=== PATIENT | male | born 1940 | race Caucasian/White ===

== ENCOUNTER 2016-10-11 14:37 | Emergency (ER) | payer MEDICARE, OTHER ==
[~2016-10-11] VITALS: Ht 175.3 cm; Wt 80.0 kg
[~2016-10-11 14:37] MED LIST: CIPR500T2 PO; DOXY100T PO; LORT5TAB PO; SULF1TAB47 PO
[2016-10-11 14:48] VITALS: BP 130/72; PULSE 74; RESP 18; TEMP 98.1; O2SAT 97
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
[2016-10-11 15:49] LABS: BASOPHIL % 0.5 % (0.0-2.0); EOSINOPHIL # 0.2 TH/MM3 (0-0.4); HEMATOCRIT 37.3 % (39.0-51.0); HEMO FLAGS DIFF FINAL; LYMPH % 26.7 % (9.0-44.0); LYMPHOCYTE # 2.2 TH/MM3 (1.0-4.8); MEAN CELL VOLUME 96.5 FL (80.0-100.0); MEAN CORPUSCULAR HEMOGLOBIN 32.6 PG (27.0-34.0); MEAN CORPUSCULAR HGB CONC 33.8 % (32.0-36.0); MONO % 9.8 % (0.0-8.0); PLATELET COUNT 278 TH/MM3 (150-450); RED BLOOD COUNT 3.87 MIL/MM3 (4.50-5.90); RED CELL DISTRIBUTION WIDTH 13.3 % (11.6-17.2); WHITE BLOOD COUNT 8.2 TH/MM3 (4.0-11.0)
[2016-10-11] MEDS ORDERED: SERO50TA PO (15:56)
[2016-10-11] MEDS ORDERED: LORA-392 PO (15:56)
[2016-10-11] MEDS ORDERED: SIMV40TA PO (15:56)
[2016-10-11] MEDS ORDERED: HYDR-3516 PO (15:56)
[2016-10-11] MEDS ORDERED: CELE20TA PO (15:56)
[2016-10-11] MEDS ORDERED: ALBU.5I NEB (15:56)
[2016-10-11] MEDS ORDERED: COLA100C3 PO (15:56)
[2016-10-11] MEDS ORDERED: ARIC10TA PO (15:56)
[2016-10-11 16:07] LABS: ALT (GPT) 19 U/L (12-78); ANION GAP 6 MEQ/L (5-15); AST (GOT) 15 U/L (15-37); BICARBONATE 29.6 MEQ/L (21.0-32.0); BLOOD UREA NITROGEN 15 MG/DL (7-18); CHLORIDE 105 MEQ/L (98-107); GLOMERULAR FILTRATION RATE 76 ML/MIN (>89); POTASSIUM 4.1 MEQ/L (3.5-5.1); SODIUM (NA) 141 MEQ/L (136-145)
[2016-10-11 16:17] LABS: ALKALINE PHOSPHATASE 95 U/L (45-117); TOTAL BILIRUBIN ADULT 0.3 MG/DL (0.2-1.0)
[2016-10-11 18:58] VITALS: BP 137/92; PULSE 67; RESP 18; O2SAT 98
[2016-10-11 22:14] VITALS: BP 141/68; PULSE 76; RESP 18; O2SAT 97
[2016-10-12 02:12] VITALS: BP 134/68; PULSE 73; RESP 19; O2SAT 95
[2016-10-12 06:00] VITALS: BP 135/62; PULSE 74; RESP 19; O2SAT 97
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
[2016-10-12 10:34] LABS: BACTERIA, URINE RARE /hpf; BLOOD, URINE SMALL (NEG); COMMENT (UR) CULT NOT INDICATED; CULTURE IF INDICATED CULT NOT INDICATED; GLUCOSE,URINE NEG (NEG); KETONE, URINE NEG (NEG); MUCUS URINE FEW /lpf (OCC); NITRITE,URINE NEG (NEG); PH, URINE 7.5 (5.0-8.5); SQUAMOUS EPITHELIAL CELL URINE <1 /hpf (0-5); URINE COLOR YELLOW (YELLW/STRAW)
[2016-10-12 10:47] LABS: AMPHETAMINE, URINE NEG (NEG); BARBITURATES, URINE NEG (NEG); COCAINE, URINE NEG (NEG)
[2016-10-12 11:00] VITALS: BP 150/76; PULSE 71; RESP 20; TEMP 98.1; O2SAT 99
[2016-10-12] MEDS ORDERED: QUEtiapine FUMARATE 25 MG TAB PO SCH (11:00)
[2016-10-12] MEDS ORDERED: CITALOPRAM HYDROBROMIDE 20 MG TAB PO SCH (11:00)
== END 2016-10-12 13:39 | disposition home or self-care (01) ==
LOC: NEPE 14:37 → NEPJ 10-12 13:39
DX: G30.8 Other Alzheimer's disease (principal)
CPT/HCPCS: 80053; 80307; 81001; 84443; 85025; 99283

== ENCOUNTER 2017-01-05 13:53 | Inpatient (IN) | payer MEDICARE, OTHER ==
[~2017-01-05] VITALS: Ht 175.3 cm; Wt 68.8 kg
[~2017-01-05 13:53] MED LIST changes: +ALBU.5I NEB; +ARIC10TA PO; +CELE20TA PO; -CIPR500T2 PO; +COLA100C3 PO; -DOXY100T PO; +HYDR-3516 PO; +LORA-392 PO; -LORT5TAB PO; +SERO50TA PO; +SIMV40TA PO; -SULF1TAB47 PO
[2017-01-05 13:57] VITALS: BP 141/73; PULSE 76; RESP 16; TEMP 98.2; O2SAT 96
[2017-01-05 14:53] VITALS: BP 149/77; PULSE 69; RESP 18; TEMP 97.9; O2SAT 97
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
[2017-01-05 16:34] LABS: AUTOMATED NEUTROPHIL # 4.6 TH/MM3 (1.8-7.7); BASOPHIL # 0.1 TH/MM3 (0-0.2); BASOPHIL % 0.8 % (0.0-2.0); EOSINOPHIL % 0.6 % (0.0-4.0); HEMATOCRIT 40.2 % (39.0-51.0); HEMO FLAGS DIFF FINAL; LYMPH % 22.5 % (9.0-44.0); LYMPHOCYTE # 1.6 TH/MM3 (1.0-4.8); MEAN CELL VOLUME 97.6 FL (80.0-100.0); MEAN CORPUSCULAR HGB CONC 33.8 % (32.0-36.0); MONO % 10.7 % (0.0-8.0); NEUT % 65.4 % (16.0-70.0); PLATELET COUNT 252 TH/MM3 (150-450); RED BLOOD COUNT 4.11 MIL/MM3 (4.50-5.90); RED CELL DISTRIBUTION WIDTH 14.6 % (11.6-17.2)
[2017-01-05 16:50] LABS: ANION GAP 4 MEQ/L (5-15); BICARBONATE 29.9 MEQ/L (21.0-32.0); BLOOD UREA NITROGEN 18 MG/DL (7-18); CHLORIDE 112 MEQ/L (98-107); GLOMERULAR FILTRATION RATE 76 ML/MIN (>89); SODIUM (NA) 146 MEQ/L (136-145)
[2017-01-05 16:54] LABS: BACTERIA, URINE RARE /hpf; BLOOD, URINE NEG (NEG); COMMENT (UR) CULT NOT INDICATED; CULTURE IF INDICATED CULT NOT INDICATED; GLUCOSE,URINE NEG (NEG); KETONE, URINE NEG (NEG); MUCUS URINE FEW /lpf (OCC); NITRITE,URINE NEG (NEG); PH, URINE 7.5 (5.0-8.5); URINE COLOR YELLOW (YELLW/STRAW)
[2017-01-05 17:09] LABS: ALCOHOL LESS THAN 3 MG/DL (0-5)
[2017-01-05 18:42] VITALS: BP 118/58; PULSE 58; RESP 16; O2SAT 96
[2017-01-05 22:35] VITALS: BP 129/64; PULSE 63; RESP 18
[2017-01-06 06:18] VITALS: BP 132/69; PULSE 69; RESP 16
[2017-01-06] MEDS ORDERED: ALBU.5I NEB (08:16)
[2017-01-06] MEDS ORDERED: NORC5TAB PO (08:58)
[2017-01-06] MEDS ORDERED: CYAN1000P IM (08:58)
[2017-01-06] MEDS ORDERED: CELE20TA PO (08:58)
[2017-01-06] MEDS ORDERED: CYCL5TAB PO (08:58)
[2017-01-06] MEDS ORDERED: ATOR20TA15 PO (08:58)
[2017-01-06] MEDS ORDERED: SERO25TA PO (08:58)
[2017-01-06] MEDS ORDERED: DEPA250T2 PO (08:58)
[2017-01-06] MEDS ORDERED: LORA-392 PO (08:58)
[2017-01-06] MEDS ORDERED: ARIC23TA PO (08:58)
[2017-01-06] MEDS ORDERED: COLA100C PO (08:58)
[2017-01-06] MEDS ORDERED: ERGO1CAP30 PO (08:58)
[2017-01-06 11:29] VITALS: BP 154/70; PULSE 70; RESP 18; O2SAT 97
[2017-01-06] MEDS ORDERED: LORazepam 1 MG TAB PO PRN (12:15)
[2017-01-06] MEDS ORDERED: LORazepam 2 MG/ML VIAL IM PRN ×2 (12:15→14:00)
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
[2017-01-06 12:48] VITALS: BP 154/70; PULSE 70; RESP 18
[2017-01-06] MEDS ORDERED: ALUMINUM/MAGNESIUM/SIMETH 30 ML CUP PO PRN (13:00)
[2017-01-06] MEDS ORDERED: PILL SPLITTER OTHER PRN (13:00)
[2017-01-06] MEDS ORDERED: MAGNESIUM HYDROXIDE SUSP 30 ML CUP PO PRN (13:00)
[2017-01-06] MEDS ORDERED: CYANOCOBALAMIN 1000 MCG/ML VIAL IM SCH (14:00)
[2017-01-06] MEDS ORDERED: LORazepam 0.5 MG TAB PO PRN (14:00)
[2017-01-06 14:55] VITALS: BP 169/79; PULSE 63; RESP 16; TEMP 98; O2SAT 98
[2017-01-06] MEDS: RESP: ALBUTEROL CONC 2.5 MG/0.5 ML NEB NEB SCH ×2 (15:36→19:52)
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
[2017-01-06 17:30] VITALS: BP 170/78; PULSE 65; RESP 18; TEMP 97.8; O2SAT 98
[2017-01-06] MEDS ORDERED: LISINOPRIL 5 MG TAB PO ONE (17:45)
[2017-01-06] MEDS: ATORVASTATIN 20 MG TAB PO SCH (21:00)
[2017-01-06] MEDS ORDERED: DIVALPROEX SODIUM DELAYED RELEASE 250 MG TAB PO SCH (21:00)
[2017-01-06] MEDS ORDERED: QUEtiapine FUMARATE 25 MG TAB PO SCH (21:00)
[2017-01-06] MEDS ORDERED: DONEPEZIL HCL 5 MG TAB PO SCH (21:00)
[2017-01-06] MEDS: QUEtiapine FUMARATE 25 MG TAB PO SCH (21:51)
[2017-01-06] MEDS: PRAVASTATIN SOD 80 MG TAB PO SCH (21:51)
[2017-01-06] MEDS: ACETAMINOPHEN/HYDROcodone 325 MG/5 MG TAB PO PRN (21:52)
[2017-01-06] MEDS: DIVALPROEX SODIUM DELAYED RELEASE 250 MG TAB PO SCH (21:52)
[2017-01-06] MEDS: CYCLOBENZAPRINE HCL 10 MG TAB PO SCH (21:52)
[2017-01-06] MEDS: DONEPEZIL HCL 5 MG TAB PO SCH (21:53)
[2017-01-06] MEDS: traZODone HCL 50 MG TAB PO PRN (23:45)
[2017-01-06] MEDS: ERGOCALCIFEROL (VIT D2) 50,000 UNIT CAP PO SCH (23:46)
[2017-01-07] MEDS: RESP: ALBUTEROL CONC 2.5 MG/0.5 ML NEB NEB SCH ×4 (04:00→20:14)
[2017-01-07 06:00] VITALS: BP 126/61; PULSE 66; RESP 18; TEMP 96.7; O2SAT 93
[2017-01-07] MEDS: DIVALPROEX SODIUM DELAYED RELEASE 250 MG TAB PO SCH ×2 (09:22→21:58)
[2017-01-07] MEDS: QUEtiapine FUMARATE 25 MG TAB PO SCH ×2 (09:22→21:58)
[2017-01-07] MEDS: CYCLOBENZAPRINE HCL 10 MG TAB PO SCH ×2 (09:22→21:58)
[2017-01-07] MEDS: LISINOPRIL 5 MG TAB PO SCH (09:22)
[2017-01-07] MEDS ORDERED: ACETAMINOPHEN 325 MG TAB PO PRN (10:15)
[2017-01-07] MEDS ORDERED: MAGNESIUM HYDROXIDE SUSP 30 ML CUP PO PRN (10:15)
[2017-01-07] MEDS ORDERED: ALUMINUM/MAGNESIUM/SIMETH 30 ML CUP PO PRN (10:15)
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
[2017-01-07 13:11] LABS: AUTOMATED NEUTROPHIL # 5.2 TH/MM3 (1.8-7.7); BASOPHIL # 0.1 TH/MM3 (0-0.2); BASOPHIL % 0.7 % (0.0-2.0); EOSINOPHIL # 0.1 TH/MM3 (0-0.4); EOSINOPHIL % 0.9 % (0.0-4.0); HEMATOCRIT 44.1 % (39.0-51.0); HEMO FLAGS DIFF FINAL; LYMPH % 28.4 % (9.0-44.0); LYMPHOCYTE # 2.4 TH/MM3 (1.0-4.8); MEAN CELL VOLUME 96.7 FL (80.0-100.0); MEAN CORPUSCULAR HEMOGLOBIN 32.3 PG (27.0-34.0); MEAN CORPUSCULAR HGB CONC 33.4 % (32.0-36.0); MONO % 9.6 % (0.0-8.0); NEUT % 60.4 % (16.0-70.0); PLATELET COUNT 274 TH/MM3 (150-450); RED BLOOD COUNT 4.56 MIL/MM3 (4.50-5.90); RED CELL DISTRIBUTION WIDTH 14.4 % (11.6-17.2); WHITE BLOOD COUNT 8.5 TH/MM3 (4.0-11.0)
[2017-01-07 14:05] LABS: ALKALINE PHOSPHATASE 74 U/L (45-117); ALT (GPT) 12 U/L (12-78); ANION GAP 10 MEQ/L (5-15); AST (GOT) 11 U/L (15-37); BICARBONATE 29.5 MEQ/L (21.0-32.0); BLOOD UREA NITROGEN 22 MG/DL (7-18); CHLORIDE 103 MEQ/L (98-107); GLOMERULAR FILTRATION RATE 73 ML/MIN (>89); HDL CHOLESTEROL 42.1 MG/DL (40.0-60.0); POTASSIUM 3.5 MEQ/L (3.5-5.1); SODIUM (NA) 142 MEQ/L (136-145); TOTAL BILIRUBIN ADULT 0.3 MG/DL (0.2-1.0)
[2017-01-07 14:06] LABS: LDL CHOLESTEROL 93 MG/DL (0-99)
[2017-01-07] MEDS: ACETAMINOPHEN/HYDROcodone 325 MG/5 MG TAB PO PRN ×2 (15:12→22:00)
[2017-01-07 16:28] LABS: HEMOGLOBIN A1b 1.8 %; HEMOGLOBIN Ao 85.7 %; HEMOGLOBIN P3 3.6 %
[2017-01-07 17:21] VITALS: BP 113/73; PULSE 78; RESP 18; TEMP 98; O2SAT 98
[2017-01-07] MEDS: DONEPEZIL HCL 5 MG TAB PO SCH (21:58)
[2017-01-07] MEDS: ATORVASTATIN 20 MG TAB PO SCH (21:58)
[2017-01-07] MEDS: PRAVASTATIN SOD 80 MG TAB PO SCH (21:59)
[2017-01-08 06:12] VITALS: BP 106/56; PULSE 70; RESP 18; TEMP 97.6; O2SAT 95
[2017-01-08] MEDS: LISINOPRIL 5 MG TAB PO SCH (09:56)
[2017-01-08] MEDS: CYCLOBENZAPRINE HCL 10 MG TAB PO SCH ×2 (09:56→21:27)
[2017-01-08] MEDS: QUEtiapine FUMARATE 25 MG TAB PO SCH ×2 (09:56→21:27)
[2017-01-08] MEDS: DIVALPROEX SODIUM DELAYED RELEASE 250 MG TAB PO SCH ×2 (09:56→21:26)
[2017-01-08] MEDS: RESP: ALBUTEROL CONC 2.5 MG/0.5 ML NEB NEB SCH ×3 (10:00→22:00)
--- NOTE | 2017-01-08 12:59 | HHI.PYPN ---
Subjective Remarks Patient was seen and case discussed with nursing. Patient is pleasant and cooperative with exam. He is alert and oriented 1. Interview conducted in Thai. Patient is tangential his difficulty staying on topic. Denies suicidal ideation intent or plan. He has not been aggressive on the unit. His behaving well and compliant with medications Objective Alert: Yes [place]: Person (vaguely) Mood: Anxious Affect: Euthymic Memory Intact: Comment (very poor) Hallucinations: Other (denies) Delusions: No Delusion Type: Other (mildly vigilant) Suicidal: Ideation (denies) Homicidal: Ideation (deny) Insight/Judgment Poor Vitals/IOs Vital Signs Date Time Temp Pulse Resp B/P Pulse Ox O2 Delivery O2 Flow Rate FiO2 01/08/17 06:12 97.6 70 18 106/56 95 01/06/17 12:48 Room Air Intake and Output 01/07/17 01/07/17 01/08/17 08:00 16:00 00:00 Intake Total 120 ml 960 ml Balance 120 ml 960 ml Assessment & Plan Problem List: (1) Alzheimer's dementia ICD Code: G30.9 (2) Dementia in other diseases classified elsewhere with behavioral disturbance ICD Code: F02.81 Assessment & Plan Continue current treatment plan Justification for Cont. Inpt. Patient will decompensate in a less restrictive setting Request HC Surrog/Guard Advoc?: Yes Problem Qualifiers (1) Alzheimer's dementia: David Allison DO Jan 08, 2017 12:59
--- NOTE | 2017-01-08 13:09 | EKG ---
Date Performed: 01/07/2017 Time Performed: 13:50:38 PTAGE: 76 years EKG: Sinus rhythm MARKED LEFT AXIS DEVIATION MODERATE INTRAVENTRICULAR CONDUCTION DELAY ABNORMAL ECG NO PREVIOUS TRACING DOCTOR: Alisha Mayo Interpretating Date/Time 01/08/2017 13:08:43
[2017-01-08] MEDS: ACETAMINOPHEN/HYDROcodone 325 MG/5 MG TAB PO PRN (14:55)
[2017-01-08 20:00] VITALS: BP 123/58; PULSE 68; RESP 18; TEMP 98.7; O2SAT 95
[2017-01-08] MEDS: PRAVASTATIN SOD 80 MG TAB PO SCH (21:00)
[2017-01-08] MEDS: DONEPEZIL HCL 5 MG TAB PO SCH (21:26)
[2017-01-08] MEDS: ATORVASTATIN 20 MG TAB PO SCH (21:26)
[2017-01-09] MEDS: RESP: ALBUTEROL CONC 2.5 MG/0.5 ML NEB NEB SCH ×4 (04:00→22:00)
[2017-01-09 05:56] VITALS: BP 106/54; PULSE 64; RESP 18; TEMP 98; O2SAT 92
[2017-01-09] MEDS: DIVALPROEX SODIUM DELAYED RELEASE 250 MG TAB PO SCH ×2 (08:48→20:26)
[2017-01-09] MEDS: LISINOPRIL 5 MG TAB PO SCH (08:49)
[2017-01-09] MEDS: ACETAMINOPHEN/HYDROcodone 325 MG/5 MG TAB PO PRN ×2 (08:49→20:26)
[2017-01-09] MEDS: CYCLOBENZAPRINE HCL 10 MG TAB PO SCH ×2 (08:49→20:27)
[2017-01-09] MEDS: QUEtiapine FUMARATE 25 MG TAB PO SCH ×2 (08:50→20:27)
--- NOTE | 2017-01-09 11:05 | HHI.PYPN ---
Subjective Remarks Patient was seen and case discussed with nursing. Patient is alert and oriented 1. Interview conducted in Korean patient remains confused. He could not tell me he is in the hospital is perseverative on apartment that he came from. Denies suicidal ideation intent or plan. Would not answer questions appropriately concerning hallucinations. Behaving well on the unit Objective Alert: Yes [place]: Person (vaguely) Mood: Anxious Affect: Restricted Memory Intact: Comment (very poor) Hallucinations: Other (denies) Delusions: No Delusion Type: Other (mildly vigilant) Suicidal: Ideation (denies) Homicidal: Ideation (deny) Insight/Judgment Poor Vitals/IOs Vital Signs Date Time Temp Pulse Resp B/P Pulse Ox O2 Delivery O2 Flow Rate FiO2 01/09/17 05:56 98.0 64 18 106/54 92 01/06/17 12:48 Room Air Intake and Output 01/08/17 01/08/17 01/09/17 08:00 16:00 00:00 Intake Total 480 ml 360 ml 1320 ml Balance 480 ml 360 ml 1320 ml Assessment & Plan Problem List: (1) Alzheimer's dementia ICD Code: G30.9 (2) Dementia in other diseases classified elsewhere with behavioral disturbance ICD Code: F02.81 Assessment & Plan Continue current treatment plan Justification for Cont. Inpt. Patient will decompensate in a less restrictive setting Request HC Surrog/Guard Advoc?: Yes Problem Qualifiers (1) Alzheimer's dementia: David Allison DO Jan 09, 2017 11:05
[2017-01-09 17:56] VITALS: BP 125/76; PULSE 95; TEMP 97.3; O2SAT 98
[2017-01-09] MEDS: ATORVASTATIN 20 MG TAB PO SCH (20:26)
[2017-01-09] MEDS: DONEPEZIL HCL 5 MG TAB PO SCH (20:26)
[2017-01-09] MEDS: PRAVASTATIN SOD 80 MG TAB PO SCH (20:27)
[2017-01-10] MEDS: RESP: ALBUTEROL CONC 2.5 MG/0.5 ML NEB NEB SCH ×4 (04:00→20:20)
[2017-01-10 05:17] VITALS: BP 134/65; PULSE 61; RESP 18; TEMP 97.3; O2SAT 94
[2017-01-10] MEDS: CYCLOBENZAPRINE HCL 10 MG TAB PO SCH ×2 (08:50→21:31)
[2017-01-10] MEDS: QUEtiapine FUMARATE 25 MG TAB PO SCH ×2 (08:50→21:31)
[2017-01-10] MEDS: DIVALPROEX SODIUM DELAYED RELEASE 250 MG TAB PO SCH ×2 (08:50→21:31)
[2017-01-10] MEDS: LISINOPRIL 5 MG TAB PO SCH (08:51)
--- NOTE | 2017-01-10 11:44 | HHI.PYPN ---
Subjective Remarks Met with patient's brother along with counselor Anh and medical students Luam and Karen, discussed patient's history diagnosis treatment and recommendations with the brother. Also counseled with patient's brother about prognosis, and need for the brother to keep his own health and safety in mind. There is an older brother was in a fdc in the [facility]. The brothers given okay for us to contact that facility as an alternative for placement. Otherwise patient no behavioral problems on the unit he is compliant with medications. However still the language issue Review of Systems Except as stated in HPI: all other systems reviewed are Neg Objective Alert: Yes [place]: Person (vaguely) Mood: Anxious Affect: Restricted Memory Intact: Comment (very poor) Hallucinations: Other (denies) Delusions: No Delusion Type: Other (mildly vigilant) Suicidal: Ideation (denies) Homicidal: Ideation (deny) Insight/Judgment Very poor Vitals/IOs Vital Signs Date Time Temp Pulse Resp B/P Pulse Ox O2 Delivery O2 Flow Rate FiO2 01/10/17 05:17 97.3 61 18 134/65 94 01/06/17 12:48 Room Air Intake and Output 01/09/17 01/09/17 01/09/17 07:59 15:59 23:59 Intake Total 240 ml 840 ml Balance 240 ml 840 ml Assessment & Plan Problem List: (1) Alzheimer's dementia ICD Code: G30.9 (2) Dementia in other diseases classified elsewhere with behavioral disturbance ICD Code: F02.81 Assessment & Plan Estimated LOS: days she continues to [place] confused, no behavior problem, language is an issue. For now continue treatment Justification for Cont. Inpt. At this time patient will decompensate and placed in a lower level of care Discharge Planning To be determined Request HC Surrog/Guard Advoc?: Yes Problem Qualifiers (1) Alzheimer's dementia: Pratik Bocanegra MD Jan 10, 2017 11:44
--- NOTE | 2017-01-10 15:09 | PD.TTN ---
Present for Treatment Team Treatment Team Staff: Provider (Dr Grullon), Nurse (Sandhya ), Psych Therapist ( Anh ), Occupational Therapist (Shahrzad ) Patient Problems 1. Discharge planning 2. Medication compliance 3. Knowledge deficit 4. Lack of coping skills Progress Toward Goals Provider Input: met with brother and will try get brother work on getting him to [place] area with more Turkmen speaking population Nurse Input: took meds no issues Psych Therapist Input: overall in need for placement Occupational Therapist Input: pt has been visible and pleasant in milieu Anh Davis COMMERCIAL BANKER Jan 10, 2017 15:08
[2017-01-10 18:06] VITALS: BP 119/55; PULSE 75; RESP 18; TEMP 97.7; O2SAT 94
[2017-01-10 21:16] VITALS: BP 119/55; PULSE 75; RESP 18; TEMP 97.7; O2SAT 94
[2017-01-10] MEDS: DONEPEZIL HCL 5 MG TAB PO SCH (21:32)
[2017-01-10] MEDS: ATORVASTATIN 20 MG TAB PO SCH (21:32)
[2017-01-10] MEDS: PRAVASTATIN SOD 80 MG TAB PO SCH (21:32)
[2017-01-10] MEDS: traZODone HCL 50 MG TAB PO PRN (22:24)
[2017-01-10] MEDS: ACETAMINOPHEN/HYDROcodone 325 MG/5 MG TAB PO PRN (22:45)
[2017-01-11] MEDS: RESP: ALBUTEROL CONC 2.5 MG/0.5 ML NEB NEB SCH ×4 (03:20→20:28)
[2017-01-11 05:35] VITALS: BP 125/74; PULSE 86; RESP 17; TEMP 98.1; O2SAT 95
[2017-01-11] MEDS: CYCLOBENZAPRINE HCL 10 MG TAB PO SCH ×2 (09:00→21:52)
[2017-01-11] MEDS: DIVALPROEX SODIUM DELAYED RELEASE 250 MG TAB PO SCH ×2 (09:00→21:51)
[2017-01-11] MEDS: QUEtiapine FUMARATE 25 MG TAB PO SCH ×2 (09:00→21:51)
[2017-01-11] MEDS: LISINOPRIL 5 MG TAB PO SCH (09:00)
--- NOTE | 2017-01-11 15:19 | HHI.PYPN ---
Subjective Remarks Patient's Depakote level on 01/07 is 52. Will recheck Depakote level in a.m. Patient seen in day room with nurse Roxana and medical student Brit, patient continues confused disoriented with some vigilance some mild irritability noted. Compliant medications. Review of Systems Except as stated in HPI: all other systems reviewed are Neg Objective Alert: Yes [place]: Person (vaguely) Mood: Anxious Affect: Restricted Memory Intact: Comment (very poor) Hallucinations: Other (denies) Delusions: No Delusion Type: Other (mildly vigilant) Suicidal: Ideation (denies) Homicidal: Ideation (deny) Insight/Judgment Very poor Vitals/IOs Vital Signs Date Time Temp Pulse Resp B/P Pulse Ox O2 Delivery O2 Flow Rate FiO2 01/11/17 05:35 98.1 86 17 125/74 95 Intake and Output 01/10/17 01/10/17 01/11/17 08:00 16:00 00:00 Intake Total 360 ml 1320 ml 2700 ml Balance 360 ml 1320 ml 2700 ml Assessment & Plan Problem List: (1) Alzheimer's dementia ICD Code: G30.9 (2) Dementia in other diseases classified elsewhere with behavioral disturbance ICD Code: F02.81 Assessment & Plan Estimated LOS: days she continues confused and demented there is also the issue with the difficulties with language. See medication adjustment above Justification for Cont. Inpt. At this time patient will decompensate if placed in the lower level of care Discharge Planning To be determined Request HC Surrog/Guard Advoc?: Yes Problem Qualifiers (1) Alzheimer's dementia: Pratik Bocanegra MD Jan 11, 2017 15:19
[2017-01-11 15:57] VITALS: BP 119/61; PULSE 77; RESP 18; TEMP 98.3
[2017-01-11] MEDS: traZODone HCL 50 MG TAB PO PRN (21:51)
[2017-01-11] MEDS: ACETAMINOPHEN/HYDROcodone 325 MG/5 MG TAB PO PRN (21:51)
[2017-01-11] MEDS: ATORVASTATIN 20 MG TAB PO SCH (21:51)
[2017-01-11] MEDS: PRAVASTATIN SOD 80 MG TAB PO SCH (21:51)
[2017-01-11] MEDS: DONEPEZIL HCL 5 MG TAB PO SCH (21:52)
[2017-01-12] MEDS: RESP: ALBUTEROL CONC 2.5 MG/0.5 ML NEB NEB SCH ×4 (04:00→21:37)
[2017-01-12 05:04] VITALS: BP 104/54; PULSE 61; RESP 15; TEMP 97.3; O2SAT 95
[2017-01-12] MEDS: LISINOPRIL 5 MG TAB PO SCH (08:27)
[2017-01-12] MEDS: DIVALPROEX SODIUM DELAYED RELEASE 250 MG TAB PO SCH ×2 (08:27→21:07)
[2017-01-12] MEDS: QUEtiapine FUMARATE 25 MG TAB PO SCH ×2 (08:27→21:07)
[2017-01-12] MEDS: ACETAMINOPHEN/HYDROcodone 325 MG/5 MG TAB PO PRN (08:27)
[2017-01-12] MEDS: CYCLOBENZAPRINE HCL 10 MG TAB PO SCH ×2 (08:27→21:06)
--- NOTE | 2017-01-12 10:52 | HHI.PYPN ---
Subjective Remarks Patient seen in his room patient laying in bed patient seen with nurse Marguerite and family practice resident Serjio. Patient continues confused disoriented with a 7 no behavior problem. It appears he was complaining somewhat of a headache though appears is some O cystic mass over his lower cervical spine that is somewhat mobile and tender. Relive hospitalist assess this Review of Systems Except as stated in HPI: all other systems reviewed are Neg Objective Alert: Yes [place]: Person (vaguely) Mood: Anxious Affect: Restricted Memory Intact: Comment (very poor) Hallucinations: Other (denies) Delusions: No Delusion Type: Other (mildly vigilant) Suicidal: Ideation (denies) Homicidal: Ideation (deny) Insight/Judgment Poor Vitals/IOs Vital Signs Date Time Temp Pulse Resp B/P Pulse Ox O2 Delivery O2 Flow Rate FiO2 01/12/17 05:04 97.3 61 15 104/54 95 Intake and Output 01/11/17 01/11/17 01/11/17 07:59 15:59 23:59 Intake Total 360 ml 1350 ml Balance 360 ml 1350 ml Assessment & Plan Problem List: (1) Alzheimer's dementia ICD Code: G30.9 (2) Dementia in other diseases classified elsewhere with behavioral disturbance ICD Code: F02.81 Assessment & Plan Estimated LOS: days patient continues confused and demented, this small mass just under the skin noted lower cervical area will have hospitalist assess this Justification for Cont. Inpt. At this time patient will decompensate if placed in a lower level of care Discharge Planning To be determined Request HC Surrog/Guard Advoc?: Yes Problem Qualifiers (1) Alzheimer's dementia: Pratik Bocanegra MD Jan 12, 2017 10:52
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
[2017-01-12] MEDS: hydrOXYzine HCL 50 MG TAB PO PRN (17:22)
[2017-01-12] MEDS: ACETAMINOPHEN 325 MG TAB PO PRN (17:22)
[2017-01-12] MEDS: DONEPEZIL HCL 5 MG TAB PO SCH (21:07)
[2017-01-12] MEDS: ATORVASTATIN 20 MG TAB PO SCH (21:07)
[2017-01-12] MEDS: PRAVASTATIN SOD 80 MG TAB PO SCH (21:07)
[2017-01-12 21:37] VITALS: BP 121/76; PULSE 79; RESP 16; TEMP 97.4; O2SAT 95
[2017-01-13] MEDS: RESP: ALBUTEROL CONC 2.5 MG/0.5 ML NEB NEB SCH ×4 (03:06→20:27)
[2017-01-13 06:04] VITALS: BP 121/63; PULSE 76; RESP 18; TEMP 98; O2SAT 96
[2017-01-13] MEDS: CYCLOBENZAPRINE HCL 10 MG TAB PO SCH ×2 (09:00→20:35)
[2017-01-13] MEDS: QUEtiapine FUMARATE 25 MG TAB PO SCH ×2 (09:00→20:35)
[2017-01-13] MEDS: DIVALPROEX SODIUM DELAYED RELEASE 250 MG TAB PO SCH ×2 (09:00→20:35)
[2017-01-13] MEDS: LISINOPRIL 5 MG TAB PO SCH (09:00)
--- NOTE | 2017-01-13 09:40 | HHI.PYPN ---
Subjective Remarks Patient seen in treatment team with warehouse shipping supervisor. Patient given 4 week continue once of the cord today by Bag Machine Set Up Operator Aggie with his brother to be health care surrogate. Patient appeared to show little insight or understanding with the proceedings. He continues confused demented though at this time no significant behavioral problems. Compliant with his medications Review of Systems Except as stated in HPI: all other systems reviewed are Neg Objective Alert: Yes [place]: Person (vaguely) Mood: Anxious Affect: Restricted Memory Intact: Comment (very poor) Hallucinations: Other (denies) Delusions: No Delusion Type: Other (mildly vigilant) Suicidal: Ideation (denies) Homicidal: Ideation (deny) Insight/Judgment Very poor Labs Test 01/13/17 08:00 Valproic Acid (Depakene) Level 56 MCG/ML Vitals/IOs Vital Signs Date Time Temp Pulse Resp B/P Pulse Ox O2 Delivery O2 Flow Rate FiO2 01/13/17 06:04 98.0 76 18 121/63 96 Intake and Output 01/12/17 01/12/17 01/13/17 08:00 16:00 00:00 Intake Total 0 ml 600 ml Balance 0 ml 600 ml Assessment & Plan Problem List: (1) Alzheimer's dementia ICD Code: G30.9 (2) Dementia in other diseases classified elsewhere with behavioral disturbance ICD Code: F02.81 Assessment & Plan Estimated LOS: days patient is confused and demented. There continues some language.. Patient [place] court continued 4 weeks with brother to be health care surrogate. For now continue treatment Justification for Cont. Inpt. At this time patient will decompensate if placed in a lower level of care Discharge Planning To be determined Request HC Surrog/Guard Advoc?: Yes Problem Qualifiers (1) Alzheimer's dementia: Pratik Bocanegra MD Jan 13, 2017 09:40
[2017-01-13] MEDS: ACETAMINOPHEN/HYDROcodone 325 MG/5 MG TAB PO PRN (13:00)
[2017-01-13] MEDS: ERGOCALCIFEROL (VIT D2) 50,000 UNIT CAP PO SCH (14:00)
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
[2017-01-13 19:14] VITALS: BP 119/62; PULSE 73; RESP 16; TEMP 98.4; O2SAT 98
[2017-01-13] MEDS: ATORVASTATIN 20 MG TAB PO SCH (20:35)
[2017-01-13] MEDS: PRAVASTATIN SOD 80 MG TAB PO SCH (20:35)
[2017-01-13] MEDS: DONEPEZIL HCL 5 MG TAB PO SCH (20:35)
[2017-01-14] MEDS: RESP: ALBUTEROL CONC 2.5 MG/0.5 ML NEB NEB SCH ×4 (03:03→22:00)
[2017-01-14 06:00] VITALS: BP 127/67; PULSE 77; RESP 14; TEMP 97.7; O2SAT 98
[2017-01-14] MEDS: QUEtiapine FUMARATE 25 MG TAB PO SCH ×2 (09:57→21:43)
[2017-01-14] MEDS: CYCLOBENZAPRINE HCL 10 MG TAB PO SCH ×2 (09:57→21:43)
[2017-01-14] MEDS: LISINOPRIL 5 MG TAB PO SCH (09:57)
[2017-01-14] MEDS: DIVALPROEX SODIUM DELAYED RELEASE 250 MG TAB PO SCH (09:58)
--- NOTE | 2017-01-14 15:03 | HHI.PYPN ---
Subjective Remarks Patient seen today in the [place]. With medical student Brit. Patient somewhat more irritable today speaking rapidly in Lebanese with increased intensity. Though no [id number] behaviors. Remains diffusely confused. Compliant medications. Will increase Depakote to 250 mg a.m. 500 mg at bedtime check a blood level on 01/17 Review of Systems Except as stated in HPI: all other systems reviewed are Neg Objective Alert: Yes [place]: Person (vaguely) Mood: Anxious Affect: Restricted Memory Intact: Comment (very poor) Hallucinations: Other (denies) Delusions: No Delusion Type: Other (mildly vigilant) Suicidal: Ideation (denies) Homicidal: Ideation (deny) Insight/Judgment Poor Vitals/IOs Vital Signs Date Time Temp Pulse Resp B/P Pulse Ox O2 Delivery O2 Flow Rate FiO2 01/14/17 06:00 97.7 77 14 127/67 98 Intake and Output 01/13/17 01/13/17 01/13/17 07:59 15:59 23:59 Intake Total 240 ml 240 ml 480 ml Balance 240 ml 240 ml 480 ml Assessment & Plan Problem List: (1) Alzheimer's dementia ICD Code: G30.9 (2) Dementia in other diseases classified elsewhere with behavioral disturbance ICD Code: F02.81 Assessment & Plan Estimated LOS: days patient continues confused this oriented though somewhat more labile today. She medication adjustment above Justification for Cont. Inpt. At this time patient decompensate if placed in a lower level of care Discharge Planning To be determined Request HC Surrog/Guard Advoc?: Yes Problem Qualifiers (1) Alzheimer's dementia: Pratik Bocanegra MD Jan 14, 2017 15:03
[2017-01-14 16:19] VITALS: BP 115/66; PULSE 91; RESP 16; TEMP 98.4; O2SAT 95
[2017-01-14] MEDS: DONEPEZIL HCL 5 MG TAB PO SCH (21:43)
[2017-01-14] MEDS: DIVALPROEX SODIUM E.R. 500 MG TAB PO SCH (21:43)
[2017-01-14] MEDS: PRAVASTATIN SOD 80 MG TAB PO SCH (21:43)
[2017-01-14] MEDS: ATORVASTATIN 20 MG TAB PO SCH (21:43)
[2017-01-14] MEDS: diphenhydrAMINE HCL 50 MG CAP PO PRN (21:44)
[2017-01-15] MEDS: RESP: ALBUTEROL CONC 2.5 MG/0.5 ML NEB NEB SCH ×3 (04:00→20:45)
[2017-01-15 06:00] VITALS: BP 127/69; PULSE 64; RESP 16; TEMP 97.5; O2SAT 98
[2017-01-15] MEDS ORDERED: RESP: ALBUTEROL 2.5 MG/3 ML NEB (PRN) ONE (08:27)
[2017-01-15] MEDS: DIVALPROEX SODIUM DELAYED RELEASE 250 MG TAB PO SCH (09:51)
[2017-01-15] MEDS: QUEtiapine FUMARATE 25 MG TAB PO SCH ×2 (09:51→21:09)
[2017-01-15] MEDS: CYCLOBENZAPRINE HCL 10 MG TAB PO SCH ×2 (09:51→21:08)
[2017-01-15] MEDS: LISINOPRIL 5 MG TAB PO SCH (09:51)
[2017-01-15] MEDS: ACETAMINOPHEN/HYDROcodone 325 MG/5 MG TAB PO PRN (15:30)
--- NOTE | 2017-01-15 19:30 | HHI.PYPN ---
Subjective Remarks PT seen with hotel staff member and paintless dent repair technician and discussed with staff. Pt has been cooperative with care and has not been agitated. He has been isolative to room but comes out for meals.Compliant with medications. No SI/HI. Objective Alert: Yes [place]: Person Mood: Calm Affect: Restricted Memory Intact: Comment (very poor) Hallucinations: Other (denies) Delusions: No Delusion Type: Other (mildly vigilant) Suicidal: Ideation (denies) Homicidal: Ideation (deny) Insight/Judgment poor Remarks candido of decompensation Vitals/IOs Vital Signs Date Time Temp Pulse Resp B/P Pulse Ox O2 Delivery O2 Flow Rate FiO2 01/15/17 06:00 97.5 64 16 127/69 98 Intake and Output 01/14/17 01/14/17 01/14/17 07:59 15:59 23:59 Intake Total 480 ml 1440 ml 240 ml Balance 480 ml 1440 ml 240 ml Assessment & Plan Problem List: (1) Alzheimer's dementia ICD Code: G30.9 (2) Dementia in other diseases classified elsewhere with behavioral disturbance ICD Code: F02.81 Assessment & Plan continue current tx plan. Estimated LOS: days Justification for Cont. Inpt. risk of decompensation Request HC Surrog/Guard Advoc?: Yes Problem Qualifiers (1) Alzheimer's dementia: Mary Levy MD Jan 15, 2017 19:30
[2017-01-15] MEDS: PRAVASTATIN SOD 80 MG TAB PO SCH (21:07)
[2017-01-15] MEDS: DONEPEZIL HCL 5 MG TAB PO SCH (21:08)
[2017-01-15] MEDS: DIVALPROEX SODIUM E.R. 500 MG TAB PO SCH (21:08)
[2017-01-15] MEDS: diphenhydrAMINE HCL 50 MG CAP PO PRN (21:08)
[2017-01-15] MEDS: ATORVASTATIN 20 MG TAB PO SCH (21:24)
[2017-01-16] MEDS: RESP: ALBUTEROL CONC 2.5 MG/0.5 ML NEB NEB SCH ×4 (04:00→22:00)
[2017-01-16 06:00] VITALS: BP 127/68; PULSE 92; RESP 18; TEMP 98.5; O2SAT 97
[2017-01-16] MEDS: LISINOPRIL 5 MG TAB PO SCH (09:00)
[2017-01-16] MEDS: DIVALPROEX SODIUM DELAYED RELEASE 250 MG TAB PO SCH (09:00)
[2017-01-16] MEDS: QUEtiapine FUMARATE 25 MG TAB PO SCH ×2 (09:00→21:11)
[2017-01-16] MEDS: CYCLOBENZAPRINE HCL 10 MG TAB PO SCH ×2 (09:00→21:11)
--- NOTE | 2017-01-16 16:51 | HHI.PYPN ---
Subjective Remarks Pt seen and discussed with staff. He has been calm and cooperative with care. Good appetite. No behavioral problems. Compliant with medications. No SI/HI Objective Alert: Yes [place]: Person Mood: Calm Affect: Restricted Memory Intact: Comment (very poor) Hallucinations: Other (denies) Delusions: No Delusion Type: Other (mildly vigilant) Suicidal: Ideation (denies) Homicidal: Ideation (deny) Insight/Judgment poor Vitals/IOs Vital Signs Date Time Temp Pulse Resp B/P Pulse Ox O2 Delivery O2 Flow Rate FiO2 01/16/17 06:00 98.5 92 18 127/68 97 Intake and Output 01/15/17 01/15/17 01/16/17 08:00 16:00 00:00 Intake Total 1320 ml Balance 1320 ml Assessment & Plan Problem List: (1) Alzheimer's dementia ICD Code: G30.9 (2) Dementia in other diseases classified elsewhere with behavioral disturbance ICD Code: F02.81 Assessment & Plan Continue current tx plan. Estimated LOS: days Justification for Cont. Inpt. risk of decompensation Request HC Surrog/Guard Advoc?: Yes Problem Qualifiers (1) Alzheimer's dementia: Mary Levy MD Jan 16, 2017 16:50
[2017-01-16 18:49] VITALS: BP 113/56; PULSE 91; RESP 18; TEMP 99.3
[2017-01-16] MEDS: DONEPEZIL HCL 5 MG TAB PO SCH (21:11)
[2017-01-16] MEDS: DIVALPROEX SODIUM E.R. 500 MG TAB PO SCH (21:11)
[2017-01-16] MEDS: traZODone HCL 50 MG TAB PO PRN (21:11)
[2017-01-16] MEDS: PRAVASTATIN SOD 80 MG TAB PO SCH (21:11)
[2017-01-16] MEDS: ATORVASTATIN 20 MG TAB PO SCH (21:11)
[2017-01-17 05:42] VITALS: BP 105/63; PULSE 72; RESP 18; TEMP 97.8
[2017-01-17] MEDS: CYCLOBENZAPRINE HCL 10 MG TAB PO SCH ×2 (09:16→20:30)
[2017-01-17] MEDS: QUEtiapine FUMARATE 25 MG TAB PO SCH ×2 (09:16→20:30)
[2017-01-17] MEDS: LISINOPRIL 5 MG TAB PO SCH (09:16)
[2017-01-17] MEDS: DIVALPROEX SODIUM DELAYED RELEASE 250 MG TAB PO SCH (09:16)
[2017-01-17] MEDS: RESP: ALBUTEROL CONC 2.5 MG/0.5 ML NEB NEB SCH ×3 (09:31→19:40)
--- NOTE | 2017-01-17 12:20 | HHI.PYPN ---
Subjective Remarks Patient discussed with treatment team. Patient seen in day room with floor staff. Chart reviewed. Patient continues no significant behavioral problems, compliant medications. Continues to show disorganized speech in Irish. Continue to work with placement issues that may be somewhat complicated with the language barrier Review of Systems Except as stated in HPI: all other systems reviewed are Neg Objective Alert: Yes [place]: Person Mood: Calm Affect: Restricted Memory Intact: Comment (very poor) Hallucinations: Other (denies) Delusions: No Delusion Type: Other (mildly vigilant) Suicidal: Ideation (denies) Homicidal: Ideation (deny) Insight/Judgment Very poor Vitals/IOs Vital Signs Date Time Temp Pulse Resp B/P Pulse Ox O2 Delivery O2 Flow Rate FiO2 01/17/17 05:42 97.8 72 18 105/63 01/16/17 06:00 97 Intake and Output 01/16/17 01/16/17 01/17/17 08:00 16:00 00:00 Intake Total 1560 ml Balance 1560 ml Assessment & Plan Problem List: (1) Alzheimer's dementia ICD Code: G30.9 (2) Dementia in other diseases classified elsewhere with behavioral disturbance ICD Code: F02.81 Assessment & Plan Estimated LOS: days patient continues confused demented. [place] Irish. Patient showing no behavioral issues Justification for Cont. Inpt. With this time patient may decompensate and placed in the lower level of care Discharge Planning To be determined Request HC Surrog/Guard Advoc?: Yes Problem Qualifiers (1) Alzheimer's dementia: Pratik Bocanegra MD Jan 17, 2017 12:20
--- NOTE | 2017-01-17 14:01 | PD.TTN ---
Present for Treatment Team Treatment Team Staff: Provider (Dr Bocanegra), Nurse (Trinh), Psych Therapist ( Anh ), Occupational Therapist (Karmen ) Patient Problems 1. Discharge planning 2. Medication compliance 3. Knowledge deficit 4. Lack of coping skills Progress Toward Goals Provider Input: is stable Nurse Input: compliant and no issues takes meds Psych Therapist Input: in need for [place] speaking facility Occupational Therapist Input: does not attend groups Anh Davis OPERATOR AND TRUCK DRIVER Jan 17, 2017 14:01
[2017-01-17] MEDS: ACETAMINOPHEN/HYDROcodone 325 MG/5 MG TAB PO PRN (14:55)
[2017-01-17 17:19] VITALS: BP 133/67; PULSE 90; RESP 16; TEMP 97.8; O2SAT 90
[2017-01-17] MEDS: PRAVASTATIN SOD 80 MG TAB PO SCH (20:30)
[2017-01-17] MEDS: DIVALPROEX SODIUM E.R. 500 MG TAB PO SCH (20:30)
[2017-01-17] MEDS: DONEPEZIL HCL 5 MG TAB PO SCH (20:30)
[2017-01-17] MEDS: ATORVASTATIN 20 MG TAB PO SCH (20:32)
[2017-01-18 05:33] VITALS: BP 98/56; PULSE 72; RESP 18; TEMP 97.4; O2SAT 98
[2017-01-18] MEDS: DIVALPROEX SODIUM DELAYED RELEASE 250 MG TAB PO SCH (09:36)
[2017-01-18] MEDS: QUEtiapine FUMARATE 25 MG TAB PO SCH ×2 (09:36→21:00)
[2017-01-18] MEDS: CYCLOBENZAPRINE HCL 10 MG TAB PO SCH ×2 (09:36→21:00)
[2017-01-18] MEDS: LISINOPRIL 5 MG TAB PO SCH (09:36)
--- NOTE | 2017-01-18 09:57 | HHI.PYPN ---
Subjective Remarks Patient seen in his room with nurse Trinh, counselor Anh, and medical student Karen. Chart reviewed. Patient compliant medications. Patient's Depakote level drawn on 01/17 was 56 on 50 a.m. 500 at bedtime Depakote. Will increase Depakote to 500 mg twice a day recheck blood level on 01/22. Patient continues calm diffusely confused. Still with the difficulty with language. Will attempt tomorrow to work with the computer judo teacher. Review of Systems Except as stated in HPI: all other systems reviewed are Neg Objective Alert: Yes [place]: Person Mood: Calm Affect: Restricted Memory Intact: Comment (very poor) Hallucinations: Other (denies) Delusions: No Delusion Type: Other (mildly vigilant) Suicidal: Ideation (denies) Homicidal: Ideation (deny) Insight/Judgment Very poor Labs Test 01/17/17 10:24 Valproic Acid (Depakene) Level 56 MCG/ML Vitals/IOs Vital Signs Date Time Temp Pulse Resp B/P Pulse Ox O2 Delivery O2 Flow Rate FiO2 01/18/17 05:33 97.4 72 18 98/56 98 Intake and Output 01/17/17 01/17/17 01/18/17 08:00 16:00 00:00 Intake Total 3120 ml Balance 3120 ml Assessment & Plan Problem List: (1) Alzheimer's dementia ICD Code: G30.9 (2) Dementia in other diseases classified elsewhere with behavioral disturbance ICD Code: F02.81 Assessment & Plan Estimated LOS: days patient continues confused and demented though no significant behavioral problems. Please see medication adjustments above Justification for Cont. Inpt. At this time patient will decompensate if placed in a lower level of care Discharge Planning To be determined Request HC Surrog/Guard Advoc?: Yes Problem Qualifiers (1) Alzheimer's dementia: Pratik Bocanegra MD Jan 18, 2017 09:57
[2017-01-18] MEDS: RESP: ALBUTEROL CONC 2.5 MG/0.5 ML NEB NEB SCH ×3 (10:00→20:06)
[2017-01-18] MEDS: ACETAMINOPHEN/HYDROcodone 325 MG/5 MG TAB PO PRN (17:55)
[2017-01-18 18:15] VITALS: BP 121/73; PULSE 74; RESP 18; TEMP 96.7; O2SAT 97
[2017-01-18] MEDS: ATORVASTATIN 20 MG TAB PO SCH (21:00)
[2017-01-18] MEDS: traZODone HCL 50 MG TAB PO PRN (21:00)
[2017-01-18] MEDS: DIVALPROEX SODIUM E.R. 500 MG TAB PO SCH (21:00)
[2017-01-18] MEDS: DONEPEZIL HCL 5 MG TAB PO SCH (21:00)
[2017-01-18] MEDS: PRAVASTATIN SOD 80 MG TAB PO SCH (21:00)
[2017-01-19] MEDS: RESP: ALBUTEROL CONC 2.5 MG/0.5 ML NEB NEB SCH ×4 (03:57→21:57)
[2017-01-19 05:45] VITALS: BP 118/56; PULSE 58; RESP 17; TEMP 97.9
[2017-01-19 06:25] VITALS: BP 118/56; PULSE 58; RESP 17; TEMP 97.9; O2SAT 97
[2017-01-19] MEDS: DIVALPROEX SODIUM E.R. 500 MG TAB PO SCH ×2 (08:53→21:10)
[2017-01-19] MEDS: CYCLOBENZAPRINE HCL 10 MG TAB PO SCH ×2 (08:54→21:10)
[2017-01-19] MEDS: LISINOPRIL 5 MG TAB PO SCH (08:55)
[2017-01-19] MEDS: QUEtiapine FUMARATE 25 MG TAB PO SCH ×2 (08:55→21:10)
--- NOTE | 2017-01-19 14:35 | HHI.PYPN ---
Subjective Remarks Patient seen in [place] with nurse Roxana, chart reviewed. Patient compliant medication. Patient calm. Though continues to ramble in [place]. Staff states patient attempted to use the computer science interpreter. But that science interpreter was unable to make any sense out of what he said also. For now continue treatment Review of Systems Except as stated in HPI: all other systems reviewed are Neg Objective Alert: Yes [place]: Person Mood: Calm Affect: Restricted Memory Intact: Comment (very poor) Hallucinations: Other (denies) Delusions: No Delusion Type: Other (mildly vigilant) Suicidal: Ideation (denies) Homicidal: Ideation (deny) Insight/Judgment Very poor Vitals/IOs Vital Signs Date Time Temp Pulse Resp B/P Pulse Ox O2 Delivery O2 Flow Rate FiO2 01/19/17 06:25 97.9 58 17 118/56 97 Intake and Output 01/18/17 01/18/17 01/18/17 07:59 15:59 23:59 Intake Total 360 ml 840 ml 1480 ml Balance 360 ml 840 ml 1480 ml Assessment & Plan Problem List: (1) Alzheimer's dementia ICD Code: G30.9 (2) Dementia in other diseases classified elsewhere with behavioral disturbance ICD Code: F02.81 Assessment & Plan Estimated LOS: days patient continues confused and demented though no significant behavioral problems. Compliant medications. Justification for Cont. Inpt. At this time patient will decompensate the placed in the lower level of care Discharge Planning To be determined Request HC Surrog/Guard Advoc?: Yes Problem Qualifiers (1) Alzheimer's dementia: Pratik Bocanegra MD Jan 19, 2017 14:34
[2017-01-19 18:00] VITALS: BP 128/62; PULSE 70; TEMP 91.6; O2SAT 70
[2017-01-19] MEDS: ATORVASTATIN 20 MG TAB PO SCH (21:10)
[2017-01-19] MEDS: DONEPEZIL HCL 5 MG TAB PO SCH (21:10)
[2017-01-19] MEDS: PRAVASTATIN SOD 80 MG TAB PO SCH (21:10)
[2017-01-20] MEDS: RESP: ALBUTEROL CONC 2.5 MG/0.5 ML NEB NEB SCH ×4 (04:28→22:00)
[2017-01-20 06:00] VITALS: BP 139/63; PULSE 72; RESP 16; TEMP 98.3
[2017-01-20] MEDS: LISINOPRIL 5 MG TAB PO SCH (08:48)
[2017-01-20] MEDS: CYCLOBENZAPRINE HCL 10 MG TAB PO SCH ×2 (08:48→22:20)
[2017-01-20] MEDS: QUEtiapine FUMARATE 25 MG TAB PO SCH ×2 (08:48→22:20)
[2017-01-20] MEDS: DIVALPROEX SODIUM E.R. 500 MG TAB PO SCH ×2 (08:48→22:19)
--- NOTE | 2017-01-20 11:03 | HHI.PYPN ---
Subjective Remarks Patient seen in his room with floor staff, chart review, patient compliant medications. Patient remains calm cooperative pleasant even through the language difficulties. For now continue treatment Review of Systems Except as stated in HPI: all other systems reviewed are Neg Objective Alert: Yes [place]: Person Mood: Calm Affect: Restricted Memory Intact: Comment (very poor) Hallucinations: Other (denies) Delusions: No Delusion Type: Other (mildly vigilant) Suicidal: Ideation (denies) Homicidal: Ideation (deny) Insight/Judgment Poor Vitals/IOs Vital Signs Date Time Temp Pulse Resp B/P Pulse Ox O2 Delivery O2 Flow Rate FiO2 01/20/17 06:00 98.3 72 16 139/63 01/19/17 18:00 70 Intake and Output 01/19/17 01/19/17 01/20/17 08:00 16:00 00:00 Intake Total 360 ml 870 ml Output Total 800 ml Balance -440 ml 870 ml Assessment & Plan Problem List: (1) Alzheimer's dementia ICD Code: G30.9 (2) Dementia in other diseases classified elsewhere with behavioral disturbance ICD Code: F02.81 Assessment & Plan Estimated LOS: days patient continues diffusely confused disoriented, though has been no significant behavioral problems. He is coping well with the language issues also. Justification for Cont. Inpt. This time patient will decompensate and placed in a lower level of care Discharge Planning To be determined Request HC Surrog/Guard Advoc?: Yes Problem Qualifiers (1) Alzheimer's dementia: Pratik Bocanegra MD Jan 20, 2017 11:03
[2017-01-20] MEDS: ERGOCALCIFEROL (VIT D2) 50,000 UNIT CAP PO SCH (14:00)
[2017-01-20 16:57] VITALS: BP 112/57; PULSE 74; RESP 17; TEMP 98.4; O2SAT 96
[2017-01-20] MEDS: PRAVASTATIN SOD 80 MG TAB PO SCH (22:20)
[2017-01-20] MEDS: DONEPEZIL HCL 5 MG TAB PO SCH (22:20)
[2017-01-20] MEDS: ATORVASTATIN 20 MG TAB PO SCH (22:20)
[2017-01-20] MEDS: traZODone HCL 50 MG TAB PO PRN (22:24)
[2017-01-21] MEDS: RESP: ALBUTEROL CONC 2.5 MG/0.5 ML NEB NEB SCH ×4 (03:15→20:33)
[2017-01-21 06:03] VITALS: BP 113/70; PULSE 68; RESP 16; TEMP 97.4; O2SAT 96
[2017-01-21] MEDS: DIVALPROEX SODIUM E.R. 500 MG TAB PO SCH ×2 (09:10→20:49)
[2017-01-21] MEDS: CYCLOBENZAPRINE HCL 10 MG TAB PO SCH ×2 (09:11→20:50)
[2017-01-21] MEDS: QUEtiapine FUMARATE 25 MG TAB PO SCH ×2 (09:11→20:49)
[2017-01-21] MEDS: LISINOPRIL 5 MG TAB PO SCH (09:11)
--- NOTE | 2017-01-21 15:59 | HHI.PYPN ---
Subjective Remarks Patient seen for follow-up, chart review. Patient found lying in hospital bed, patient states that he did not get up for breakfast but plans to have lunch today. Patient stated he is feeling fine denies any depressive manic or psychotic symptoms at this time but is noted to have some paranoia in relation to getting in trouble with others. This may be related to the reason why he was discharged from his previous facility and is now feeling paranoia related to this context. Patient has remained, calm and cooperative with staff. Patient states that he helps to be visited by his brother better today. Patient does not recall previous visits although brother has come to visit the patient. Patient with poor recent memory. Patient at this time denies any SI, HI, AVH or delusions. Review of Systems Except as stated in HPI: all other systems reviewed are Neg Objective Alert: Yes [place]: Person Mood: Calm Affect: Restricted Memory Intact: Comment (impaired) Hallucinations: Other (denies) Delusions: No Delusion Type: Paranoid (although maybe contextual to recent events.), Other ( mildly vigilant) Suicidal: Ideation (denies) Homicidal: Ideation (deny) Insight/Judgment Limited insight, fair impulse control and judgment Vitals/IOs Vital Signs Date Time Temp Pulse Resp B/P Pulse Ox O2 Delivery O2 Flow Rate FiO2 01/21/17 06:03 97.4 68 16 113/70 96 Intake and Output 01/20/17 01/20/17 01/21/17 08:00 16:00 00:00 Intake Total 240 ml 630 ml Balance 240 ml 630 ml Assessment & Plan Problem List: (1) Alzheimer's dementia ICD Code: G30.9 (2) Dementia in other diseases classified elsewhere with behavioral disturbance ICD Code: F02.81 Assessment & Plan Patient is time has not had any behavioral dyscontrol as a cooperative staff. Patient continues to be disoriented and confused with poor recent memory which likely stemming from cognitive deficits. Patient to continue treatment, discharge planning in progress to be able find in accepting facility that will take him. Justification for Cont. Inpt. Patient at risk for further decompensation if at lower level of care. Discharge Planning In progress Request HC Surrog/Guard Advoc?: Yes Problem Qualifiers (1) Alzheimer's dementia: Nicholas Head MD Jan 21, 2017 15:59
[2017-01-21 17:28] VITALS: BP 120/70; PULSE 96; RESP 18; TEMP 98.3; O2SAT 95
[2017-01-21] MEDS: PRAVASTATIN SOD 80 MG TAB PO SCH (20:49)
[2017-01-21] MEDS: DONEPEZIL HCL 5 MG TAB PO SCH (20:50)
[2017-01-21] MEDS: ATORVASTATIN 20 MG TAB PO SCH (20:50)
[2017-01-22] MEDS: RESP: ALBUTEROL CONC 2.5 MG/0.5 ML NEB NEB SCH ×4 (03:28→21:51)
[2017-01-22 05:31] VITALS: BP 112/67; PULSE 76; RESP 14; TEMP 99.3; O2SAT 97
[2017-01-22] MEDS: QUEtiapine FUMARATE 25 MG TAB PO SCH ×2 (09:36→20:23)
[2017-01-22] MEDS: CYCLOBENZAPRINE HCL 10 MG TAB PO SCH ×2 (09:36→20:23)
[2017-01-22] MEDS: LISINOPRIL 5 MG TAB PO SCH (09:36)
[2017-01-22] MEDS: DIVALPROEX SODIUM E.R. 500 MG TAB PO SCH ×2 (09:36→20:22)
--- NOTE | 2017-01-22 13:08 | HHI.PYPN ---
Subjective Remarks Patient was seen and case discussed with nursing. Interview conducted in Nepali. Patient denies suicidal ideation intent or plan. He is behaving well on the unit. Continues to have poor insight. Behaving well on the unit and compliant with medications Objective Alert: Yes [place]: Person Mood: Calm Affect: Restricted Memory Intact: Comment (impaired) Hallucinations: Other (denies) Delusions: No Delusion Type: Paranoid (although maybe contextual to recent events.), Other ( mildly vigilant) Suicidal: Ideation (denies) Homicidal: Ideation (deny) Insight/Judgment Poor Labs Test 01/22/17 10:24 Valproic Acid (Depakene) Level 84 MCG/ML Vitals/IOs Vital Signs Date Time Temp Pulse Resp B/P Pulse Ox O2 Delivery O2 Flow Rate FiO2 01/22/17 05:31 99.3 76 14 112/67 97 Intake and Output 01/21/17 01/21/17 01/22/17 08:00 16:00 00:00 Intake Total 240 ml 730 ml Balance 240 ml 730 ml Assessment & Plan Problem List: (1) Alzheimer's dementia ICD Code: G30.9 (2) Dementia in other diseases classified elsewhere with behavioral disturbance ICD Code: F02.81 Assessment & Plan Continue current treatment plan Justification for Cont. Inpt. Patient will decompensate in a less restrictive setting Request HC Surrog/Guard Advoc?: Yes Problem Qualifiers (1) Alzheimer's dementia: David Allison DO Jan 22, 2017 13:08
[2017-01-22 20:00] VITALS: BP 128/69; PULSE 77; RESP 16; TEMP 96.2; O2SAT 96
[2017-01-22] MEDS: PRAVASTATIN SOD 80 MG TAB PO SCH (20:22)
[2017-01-22] MEDS: diphenhydrAMINE HCL 50 MG CAP PO PRN (20:22)
[2017-01-22] MEDS: DONEPEZIL HCL 5 MG TAB PO SCH (20:23)
[2017-01-22] MEDS: ATORVASTATIN 20 MG TAB PO SCH (20:24)
[2017-01-22] MEDS: ACETAMINOPHEN/HYDROcodone 325 MG/5 MG TAB PO PRN (20:24)
[2017-01-23] MEDS: ACETAMINOPHEN/HYDROcodone 325 MG/5 MG TAB PO PRN ×2 (02:13→23:51)
[2017-01-23] MEDS: RESP: ALBUTEROL CONC 2.5 MG/0.5 ML NEB NEB SCH ×4 (04:00→23:00)
[2017-01-23 06:02] VITALS: BP 127/71; PULSE 72; RESP 16; TEMP 98.2; O2SAT 96
[2017-01-23] MEDS: QUEtiapine FUMARATE 25 MG TAB PO SCH ×2 (09:00→20:37)
[2017-01-23] MEDS: DIVALPROEX SODIUM E.R. 500 MG TAB PO SCH ×2 (09:00→20:37)
[2017-01-23] MEDS: LISINOPRIL 5 MG TAB PO SCH (09:00)
[2017-01-23] MEDS: CYCLOBENZAPRINE HCL 10 MG TAB PO SCH ×2 (09:00→20:37)
--- NOTE | 2017-01-23 14:18 | HHI.PYPN ---
Subjective Remarks Patient was seen and case discussed with nursing. Patient remains in good behavior. Alert and oriented 1. Pain is well controlled. Denies any auditory visual hallucinations. Compliant with medications. Denies suicidal or homicidal ideation intent or plan Objective Alert: Yes [place]: Person Mood: Calm Affect: Blunted Memory Intact: Comment (impaired) Hallucinations: Other (denies) Delusions: No Delusion Type: Paranoid (although maybe contextual to recent events.), Other ( mildly vigilant) Suicidal: Ideation (denies) Homicidal: Ideation (deny) Insight/Judgment Poor Vitals/IOs Vital Signs Date Time Temp Pulse Resp B/P (MAP) Pulse Ox O2 Delivery O2 Flow Rate FiO2 01/23/17 06:02 98.2 72 16 127/71 (89) 96 Intake and Output 01/23/17 01/23/17 01/24/17 08:00 16:00 00:00 Intake Total 0 ml Balance 0 ml Assessment & Plan Problem List: (1) Alzheimer's dementia ICD Codes: G30.9 - Alzheimer's disease, unspecified Status: Acute (2) Dementia in other diseases classified elsewhere with behavioral disturbance ICD Codes: F02.81 - Dementia in other diseases classified elsewhere with behavioral disturbance Status: Acute Assessment & Plan Continue current treatment plan Justification for Cont. Inpt. Patient would decompensate in a less restrictive setting Request HC Surrog/Guard Advoc?: Yes Problem Qualifiers (1) Alzheimer's dementia: David Allison DO Jan 23, 2017 14:18
[2017-01-23 17:52] VITALS: BP 115/48; PULSE 72; RESP 17; TEMP 97.7; O2SAT 97
[2017-01-23] MEDS: PRAVASTATIN SOD 80 MG TAB PO SCH (20:37)
[2017-01-23] MEDS: DONEPEZIL HCL 5 MG TAB PO SCH (20:37)
[2017-01-23] MEDS: ATORVASTATIN 20 MG TAB PO SCH (20:37)
[2017-01-23] MEDS: diphenhydrAMINE HCL 50 MG CAP PO PRN (20:37)
[2017-01-24] MEDS: RESP: ALBUTEROL CONC 2.5 MG/0.5 ML NEB NEB SCH ×4 (04:00→22:00)
[2017-01-24 05:37] VITALS: BP 121/54; PULSE 77; RESP 17; TEMP 98.4; O2SAT 95
[2017-01-24] MEDS: ACETAMINOPHEN/HYDROcodone 325 MG/5 MG TAB PO PRN (05:45)
[2017-01-24] MEDS: LISINOPRIL 5 MG TAB PO SCH (09:00)
[2017-01-24] MEDS: CYCLOBENZAPRINE HCL 10 MG TAB PO SCH ×2 (10:05→20:56)
[2017-01-24] MEDS: QUEtiapine FUMARATE 25 MG TAB PO SCH ×2 (10:06→20:56)
[2017-01-24] MEDS: DIVALPROEX SODIUM E.R. 500 MG TAB PO SCH ×2 (10:06→20:55)
[2017-01-24] MEDS: ACETAMINOPHEN 325 MG TAB PO PRN (11:27)
[2017-01-24] MEDS: hydrOXYzine HCL 50 MG TAB PO PRN (11:27)
--- NOTE | 2017-01-24 16:22 | HHI.PYPN ---
Subjective Remarks Patient seen for follow-up, chart reviewed. As per discussion with staff patient may compliant, eating well. Patient found sitting in common area, calm and cooperative interview. Patient stated feeling calm, but slightly guarded during interview. Patient states that he did not want any problems while she is here but that relates that he is in the hospital. Patient states that he did not want to get into trouble with anyone else here and that he would rather prefer not interacting with others much. Patient denies any issues with initial [place], reports good appetite, denies any perceptual disturbances. Patient does not recall having been visited by family but states that he would like to be visited brother. Review of Systems Except as stated in HPI: all other systems reviewed are Neg Objective Alert: Yes [place]: Person Mood: Calm Affect: Other (guarded) Memory Intact: Comment (impaired) Hallucinations: Other (denies) Delusions: No Delusion Type: Paranoid (although maybe contextual to recent events.), Other ( mildly vigilant) Suicidal: Ideation (denies) Homicidal: Ideation (deny) Insight/Judgment Poor insight, fair impulse control, limited judgment Vitals/IOs Vital Signs Date Time Temp Pulse Resp B/P (MAP) Pulse Ox O2 Delivery O2 Flow Rate FiO2 01/24/17 05:37 98.4 77 17 121/54 (76) 95 Assessment & Plan Problem List: (1) Alzheimer's dementia ICD Codes: G30.9 - Alzheimer's disease, unspecified Status: Acute (2) Dementia in other diseases classified elsewhere with behavioral disturbance ICD Codes: F02.81 - Dementia in other diseases classified elsewhere with behavioral disturbance Status: Acute Assessment & Plan Patient at this time as it had any behavioral dyscontrol, has been compliant with medications denies any adverse drug reactions. Patient noted to be slightly paranoid and guarded with others and noted to be minimally interactive with it went on the unit. Patient denies any mood or psychotic symptoms at this time aside from the paranoid delusions. Continue current treatment, discharge planning in progress Justification for Cont. Inpt. At risk for further decompensation if it lower level of care Discharge Planning In progress Request HC Surrog/Guard Advoc?: Yes Problem Qualifiers (1) Alzheimer's dementia: Nicholas Head MD Jan 24, 2017 16:22
[2017-01-24 18:07] VITALS: BP 143/81; PULSE 70; RESP 18; TEMP 98.4; O2SAT 99
--- NOTE | 2017-01-24 18:15 | HHI.PYPN ---
Subjective Remarks Patient seen for follow-up, chart reviewed. After discussion with nursing staff , patient med compliant, ate breakfast. Patient found sitting in the dayroom, calm and cooperative with interview. Patient states that he is feelign "good", denies any problems with appetite, sleep, or urination or bowel movement. Patient denies any depressive, manic or psychotic symptoms. Patient continues to talk about keeping to himself so as not to "get in trouble" with others here. Patient oriented to person only. Patient does not recall having been visited by his brother Review of Systems Except as stated in HPI: all other systems reviewed are Neg Objective Alert: Yes [place]: Person Mood: Calm Affect: Other (guarded but reactive) Memory Intact: Comment (impaired) Hallucinations: Other (denies) Delusions: No Delusion Type: Paranoid (although maybe contextual to recent events.), Other ( mildly vigilant) Suicidal: Ideation (denies) Homicidal: Ideation (deny) Insight/Judgment Poor insight, fair impulse control, and judgement Vitals/IOs Vital Signs Date Time Temp Pulse Resp B/P (MAP) Pulse Ox O2 Delivery O2 Flow Rate FiO2 01/24/17 18:07 98.4 70 18 143/81 (101) 99 Assessment & Plan Problem List: (1) Alzheimer's dementia ICD Codes: G30.9 - Alzheimer's disease, unspecified Status: Acute (2) Dementia in other diseases classified elsewhere with behavioral disturbance ICD Codes: F02.81 - Dementia in other diseases classified elsewhere with behavioral disturbance Status: Acute Assessment & Plan Patient continues to be noted to be confused and not oriented to place, date or situation. Patient has not had any behavioral issues since admission, noted to be calm and cooperative, mostly keeping to himself. Continue current treatment. Discharge planning in progress. Labs ordered for tomorrow am. (VPA level) Justification for Cont. Inpt. At risk for further decompensation if at lower level of care. Request HC Surrog/Guard Advoc?: Yes Problem Qualifiers (1) Alzheimer's dementia: Nicholas Head MD Jan 24, 2017 18:15
[2017-01-24] MEDS: ATORVASTATIN 20 MG TAB PO SCH (20:55)
[2017-01-24] MEDS: DONEPEZIL HCL 5 MG TAB PO SCH (20:56)
[2017-01-24] MEDS: PRAVASTATIN SOD 80 MG TAB PO SCH (20:56)
[2017-01-25] MEDS: RESP: ALBUTEROL CONC 2.5 MG/0.5 ML NEB NEB SCH ×3 (04:00→22:38)
[2017-01-25 06:12] VITALS: BP 113/65; PULSE 72; RESP 18; TEMP 97.7; O2SAT 97
[2017-01-25] MEDS: QUEtiapine FUMARATE 25 MG TAB PO SCH ×2 (09:04→20:37)
[2017-01-25] MEDS: LISINOPRIL 5 MG TAB PO SCH (09:05)
[2017-01-25] MEDS: DIVALPROEX SODIUM E.R. 500 MG TAB PO SCH ×2 (09:05→20:37)
[2017-01-25] MEDS: CYCLOBENZAPRINE HCL 10 MG TAB PO SCH ×2 (09:05→20:38)
--- NOTE | 2017-01-25 14:20 | HHI.PYPN ---
Subjective Remarks Patient seen for follow, chart reviewed. Patient found sitting in common area eating lunch was able to engage in interview. Patient states that he is feeling "okay". Patient noted to be oriented only to person, patient believes that he is at his home. Patient reports that he normally gets up at a certain hour and cleans his house after. Patient denies any mood symptoms, denies any psychotic symptoms at this time. Patient continues to feel paranoid and that he wants to keep to himself which paranoid likely contextual to recent events. Review of Systems Except as stated in HPI: all other systems reviewed are Neg Objective Alert: Yes [place]: Person Mood: Calm Affect: Other (less guarded today) Memory Intact: Comment (impaired) Hallucinations: Other (denies) Delusions: No Delusion Type: Paranoid (although maybe contextual to recent events.), Other ( mildly vigilant) Suicidal: Ideation (denies) Homicidal: Ideation (deny) Insight/Judgment Poor insight, fair impulse control and judgment Labs Labs reviewed. Test 01/25/17 08:42 Valproic Acid (Depakene) Level 80 MCG/ML Vitals/IOs Vital Signs Date Time Temp Pulse Resp B/P (MAP) Pulse Ox O2 Delivery O2 Flow Rate FiO2 01/25/17 06:12 97.7 72 18 113/65 (81) 97 Intake and Output 01/25/17 01/25/17 01/26/17 08:00 16:00 00:00 Intake Total 480 ml 2400 ml Balance 480 ml 2400 ml Assessment & Plan Problem List: (1) Alzheimer's dementia ICD Codes: G30.9 - Alzheimer's disease, unspecified Status: Acute (2) Dementia in other diseases classified elsewhere with behavioral disturbance ICD Codes: F02.81 - Dementia in other diseases classified elsewhere with behavioral disturbance Status: Acute Assessment & Plan Patient noted to be doing well, with no behavioral dyscontrol since admission has been noted to be calm and cooperative with staff. Patient continues to have disorientation and oriented only to person. Patient also continues to have some paranoia which limits his interactions with others in the unit. Paranoia likely contextual to recent events at his prior living facility. Patient valproic acid level within therapeutic limits. Continue treatment and discharge planning in progress Justification for Cont. Inpt. Patient at risk for further decompensation if at a lower level of care Request HC Surrog/Guard Advoc?: Yes Problem Qualifiers (1) Alzheimer's dementia: Nicholas Head MD Jan 25, 2017 14:20
[2017-01-25 16:58] VITALS: BP 121/88; PULSE 67; RESP 18; TEMP 97.5; O2SAT 95
[2017-01-25] MEDS: PRAVASTATIN SOD 80 MG TAB PO SCH (20:37)
[2017-01-25] MEDS: DONEPEZIL HCL 5 MG TAB PO SCH (20:38)
[2017-01-25] MEDS: ATORVASTATIN 20 MG TAB PO SCH (20:38)
[2017-01-25] MEDS: traZODone HCL 50 MG TAB PO PRN (21:43)
[2017-01-26 05:48] VITALS: BP 122/60; PULSE 86; RESP 15; TEMP 97.9; O2SAT 95
[2017-01-26] MEDS: QUEtiapine FUMARATE 25 MG TAB PO SCH ×2 (08:26→20:40)
[2017-01-26] MEDS: CYCLOBENZAPRINE HCL 10 MG TAB PO SCH ×2 (08:27→20:35)
[2017-01-26] MEDS: DIVALPROEX SODIUM E.R. 500 MG TAB PO SCH ×2 (08:27→20:36)
[2017-01-26] MEDS: LISINOPRIL 5 MG TAB PO SCH (08:27)
[2017-01-26] MEDS: RESP: ALBUTEROL CONC 2.5 MG/0.5 ML NEB NEB SCH ×3 (10:00→22:00)
--- NOTE | 2017-01-26 13:36 | HHI.PYPN ---
Subjective Remarks Patient seen for follow-up, chart review. Patient is found sitting in day room and was calm and cooperative for interview. Patient states they've been feeling "okay" restoration enjoying the sunlight coming through the window. Patient states that he has been able to go outside as well and joined the others during that group activity. Denies any physical place at this time reports tolerating medications well with no adverse drug reactions. Patient noted to have more affect today, noted to be more engaging in interview Patient continues to appear confused to as why he is but is oriented to person only. Review of Systems Except as stated in HPI: all other systems reviewed are Neg Objective Alert: Yes [place]: Person Mood: Calm Affect: Other (less guarded today) Memory Intact: Comment (impaired) Hallucinations: Other (denies) Delusions: No Delusion Type: Paranoid (although maybe contextual to recent events.), Other ( mildly vigilant) Suicidal: Ideation (denies) Homicidal: Ideation (deny) Insight/Judgment Poor insight, fair impulse control and judgment Vitals/IOs Vital Signs Date Time Temp Pulse Resp B/P (MAP) Pulse Ox O2 Delivery O2 Flow Rate FiO2 01/26/17 05:48 97.9 86 15 122/60 (80) 95 Intake and Output 01/26/17 01/26/17 01/26/17 07:59 15:59 23:59 Intake Total 240 ml 480 ml Balance 240 ml 480 ml Assessment & Plan Problem List: (1) Alzheimer's dementia ICD Codes: G30.9 - Alzheimer's disease, unspecified Status: Acute (2) Dementia in other diseases classified elsewhere with behavioral disturbance ICD Codes: F02.81 - Dementia in other diseases classified elsewhere with behavioral disturbance Status: Acute Assessment & Plan Patient at this time continues to have no behavioral dyscontrol on the unit since admission, compliant with medications and interacted well with staff. The patient has some paranoia likely related to his circumstances that brought him here. Continue current treatment, team to continue to search for possible placement. Discharge planning in progress Justification for Cont. Inpt. Patient at risk for further decompensation if at a lower level of care Request HC Surrog/Guard Advoc?: Yes Problem Qualifiers (1) Alzheimer's dementia: Nicholas Head MD Jan 26, 2017 13:36
[2017-01-26 17:41] VITALS: BP 124/62; PULSE 74; RESP 18; TEMP 97.6; O2SAT 99
[2017-01-26] MEDS: ACETAMINOPHEN/HYDROcodone 325 MG/5 MG TAB PO PRN (20:21)
[2017-01-26] MEDS: PRAVASTATIN SOD 80 MG TAB PO SCH (20:34)
[2017-01-26] MEDS: DONEPEZIL HCL 5 MG TAB PO SCH (20:34)
[2017-01-26] MEDS: traZODone HCL 50 MG TAB PO PRN (20:36)
[2017-01-26] MEDS: ATORVASTATIN 20 MG TAB PO SCH (20:36)
[2017-01-27] MEDS: RESP: ALBUTEROL CONC 2.5 MG/0.5 ML NEB NEB SCH ×3 (02:48→20:59)
[2017-01-27] MEDS: ACETAMINOPHEN/HYDROcodone 325 MG/5 MG TAB PO PRN (03:54)
[2017-01-27 05:44] VITALS: BP 131/61; PULSE 77; RESP 17; TEMP 97.5; O2SAT 96
[2017-01-27] MEDS: LISINOPRIL 5 MG TAB PO SCH (09:08)
[2017-01-27] MEDS: CYCLOBENZAPRINE HCL 10 MG TAB PO SCH ×2 (09:08→20:35)
[2017-01-27] MEDS: DIVALPROEX SODIUM E.R. 500 MG TAB PO SCH ×2 (09:08→20:35)
[2017-01-27] MEDS: QUEtiapine FUMARATE 25 MG TAB PO SCH ×2 (09:08→20:35)
--- NOTE | 2017-01-27 16:51 | HHI.PYPN ---
Subjective Remarks DUPLICATE ENTRY - PLEASE SEE OTHER NOTE ON SAME DATE. Objective Alert: Yes [place]: Person Mood: Calm Affect: Other (less guarded today) Memory Intact: Comment (impaired) Hallucinations: Other (denies) Delusions: No Delusion Type: Paranoid (although maybe contextual to recent events.), Other ( mildly vigilant) Suicidal: Ideation (denies) Homicidal: Ideation (deny) Insight/Judgment DUPLICATE ENTRY - PLEASE SEE OTHER NOTE ON SAME DATE. Vitals/IOs Vital Signs Date Time Temp Pulse Resp B/P (MAP) Pulse Ox O2 Delivery O2 Flow Rate FiO2 01/27/17 05:44 97.5 77 17 131/61 (84) 96 Intake and Output 01/27/17 01/27/17 01/27/17 07:59 15:59 23:59 Intake Total 360 ml 360 ml Balance 360 ml 360 ml Assessment & Plan Problem List: (1) Alzheimer's dementia ICD Codes: G30.9 - Alzheimer's disease, unspecified Status: Acute (2) Dementia in other diseases classified elsewhere with behavioral disturbance ICD Codes: F02.81 - Dementia in other diseases classified elsewhere with behavioral disturbance Status: Acute Assessment & Plan DUPLICATE ENTRY - PLEASE SEE OTHER NOTE ON SAME DATE. Justification for Cont. Inpt. DUPLICATE ENTRY - PLEASE SEE OTHER NOTE ON SAME DATE. Request HC Surrog/Guard Advoc?: Yes Problem Qualifiers (1) Alzheimer's dementia: Nicholas Head MD Jan 27, 2017 16:51
[2017-01-27] MEDS: ATORVASTATIN 20 MG TAB PO SCH (20:35)
[2017-01-27] MEDS: DONEPEZIL HCL 5 MG TAB PO SCH (20:35)
[2017-01-27] MEDS: PRAVASTATIN SOD 80 MG TAB PO SCH (20:35)
--- NOTE | 2017-01-27 22:44 | HHI.PYPN ---
Subjective Remarks Patient seen for follow up, chart reviewed. Patient found walking in the hallway, noted to be calm and cooperative with interview. Patient states that he has been feeling "fine", denies any problems with medications, eating and drinking well. Patient continues to be confused at times, oriented only to person. He also continues to endorse some paranoid ideations about getting in trouble with others or staff. Review of Systems Except as stated in HPI: all other systems reviewed are Neg Objective Alert: Yes [place]: Person Mood: Calm Affect: Other (less guarded today) Memory Intact: Comment (impaired) Hallucinations: Other (denies) Delusions: No Delusion Type: Paranoid (although maybe contextual to recent events.), Other ( mildly vigilant) Suicidal: Ideation (denies) Homicidal: Ideation (deny) Insight/Judgment limited insight, fair impulse control and limited judgment Vitals/IOs Vital Signs Date Time Temp Pulse Resp B/P (MAP) Pulse Ox O2 Delivery O2 Flow Rate FiO2 01/27/17 05:44 97.5 77 17 131/61 (84) 96 Intake and Output 01/27/17 01/27/17 01/28/17 08:00 16:00 00:00 Intake Total 360 ml 360 ml 0 ml Balance 360 ml 360 ml 0 ml Assessment & Plan Problem List: (1) Alzheimer's dementia ICD Codes: G30.9 - Alzheimer's disease, unspecified Status: Acute (2) Dementia in other diseases classified elsewhere with behavioral disturbance ICD Codes: F02.81 - Dementia in other diseases classified elsewhere with behavioral disturbance Status: Acute Assessment & Plan Patient continues to do well, with no behavioral dyscontrol, althougth continues to have paranoid ideations of getting in trouble with others or staff he limits his interactions with others. Continue treatment. Discharge planning in process. Justification for Cont. Inpt. At risk for further decompensation if at lower level of care. Request HC Surrog/Guard Advoc?: Yes Problem Qualifiers (1) Alzheimer's dementia: Nicholas Head MD Jan 27, 2017 22:44
[2017-01-28] MEDS: RESP: ALBUTEROL CONC 2.5 MG/0.5 ML NEB NEB SCH ×4 (04:05→22:00)
[2017-01-28 05:37] VITALS: BP 129/60; PULSE 72; RESP 17; TEMP 97.5
[2017-01-28] MEDS: DIVALPROEX SODIUM E.R. 500 MG TAB PO SCH ×2 (10:38→21:57)
[2017-01-28] MEDS: LISINOPRIL 5 MG TAB PO SCH (10:38)
[2017-01-28] MEDS: QUEtiapine FUMARATE 25 MG TAB PO SCH ×2 (10:38→21:57)
[2017-01-28] MEDS: CYCLOBENZAPRINE HCL 10 MG TAB PO SCH ×2 (10:41→21:57)
[2017-01-28 17:43] VITALS: BP 154/82; PULSE 79; RESP 17; TEMP 97.7; O2SAT 95
--- NOTE | 2017-01-28 18:40 | HHI.PYPN ---
Subjective Remarks Patient seen for follow-up, chart reviewed. Patient found sitting in common area , calm and cooperative with interview. Patient states that he has been feeling "fine", denies any physical complaints, tolerating medications well. He oriented to person only, not aware that he is in the hospital at times. Patient continues to be fearful of getting to trouble with others on the unit, mostly keeps to himself. Denies SI, HI, AVH or delusions. Review of Systems Except as stated in HPI: all other systems reviewed are Neg Objective Alert: Yes [place]: Person Mood: Calm Affect: Other (less guarded today) Memory Intact: Comment (impaired) Hallucinations: Other (denies) Delusions: No Delusion Type: Paranoid (although maybe contextual to recent events.), Other ( mildly vigilant) Suicidal: Ideation (denies) Homicidal: Ideation (deny) Insight/Judgment poor insight, fair impulse control, limited judgement Vitals/IOs Vital Signs Date Time Temp Pulse Resp B/P (MAP) Pulse Ox O2 Delivery O2 Flow Rate FiO2 01/28/17 17:43 97.7 79 17 154/82 (106) 95 Intake and Output 01/28/17 01/28/17 01/29/17 08:00 16:00 00:00 Intake Total 600 ml 480 ml Balance 600 ml 480 ml Assessment & Plan Problem List: (1) Alzheimer's dementia ICD Codes: G30.9 - Alzheimer's disease, unspecified Status: Acute (2) Dementia in other diseases classified elsewhere with behavioral disturbance ICD Codes: F02.81 - Dementia in other diseases classified elsewhere with behavioral disturbance Status: Acute Assessment & Plan [place] at this time has not had any behavioral dyscontrol, med compliant. Continue current treatment. Discharge planning in progress. Justification for Cont. Inpt. At risk for further decompensation if at lower level of care Request HC Surrog/Guard Advoc?: Yes Problem Qualifiers (1) Alzheimer's dementia: Nicholas Head MD Jan 28, 2017 18:40
[2017-01-28] MEDS: DONEPEZIL HCL 5 MG TAB PO SCH (21:57)
[2017-01-28] MEDS: PRAVASTATIN SOD 80 MG TAB PO SCH (21:57)
[2017-01-28] MEDS: ATORVASTATIN 20 MG TAB PO SCH (21:58)
[2017-01-29] MEDS: RESP: ALBUTEROL CONC 2.5 MG/0.5 ML NEB NEB SCH ×4 (04:00→22:00)
[2017-01-29 06:18] VITALS: BP 95/53; PULSE 80; RESP 16; TEMP 96.8; O2SAT 96
[2017-01-29] MEDS: QUEtiapine FUMARATE 25 MG TAB PO SCH ×2 (09:34→20:48)
[2017-01-29] MEDS: CYCLOBENZAPRINE HCL 10 MG TAB PO SCH ×2 (09:35→20:49)
[2017-01-29] MEDS: LISINOPRIL 5 MG TAB PO SCH (09:36)
[2017-01-29] MEDS: DIVALPROEX SODIUM E.R. 500 MG TAB PO SCH ×2 (09:36→20:48)
--- NOTE | 2017-01-29 16:22 | HHI.PYPN ---
Subjective Remarks Pt seen and discussed with staff. He is oriented only to self. He defecated into trash can last night. No agitation or aggression today. Compliant with care and medications. Objective Alert: Yes [place]: Person Mood: Calm Affect: Other (less guarded today) Memory Intact: Comment (impaired) Hallucinations: Other (denies) Delusions: No Delusion Type: Other (none) Suicidal: Ideation (denies) Homicidal: Ideation (deny) Insight/Judgment poor Vitals/IOs Vital Signs Date Time Temp Pulse Resp B/P (MAP) Pulse Ox O2 Delivery O2 Flow Rate FiO2 01/29/17 06:18 96.8 80 16 95/53 (67) 96 Intake and Output 01/29/17 01/29/17 01/30/17 08:00 16:00 00:00 Intake Total 240 ml Balance 240 ml Assessment & Plan Problem List: (1) Alzheimer's dementia ICD Codes: G30.9 - Alzheimer's disease, unspecified Status: Acute (2) Dementia in other diseases classified elsewhere with behavioral disturbance ICD Codes: F02.81 - Dementia in other diseases classified elsewhere with behavioral disturbance Status: Acute Assessment & Plan Continue current tx plan. Estimated LOS: days Justification for Cont. Inpt. risk of decompensation Request HC Surrog/Guard Advoc?: Yes Problem Qualifiers (1) Alzheimer's dementia: Mary Levy MD Jan 29, 2017 16:22
[2017-01-29 18:16] VITALS: BP 108/74; PULSE 80; RESP 18; TEMP 98; O2SAT 99
[2017-01-29] MEDS: PRAVASTATIN SOD 80 MG TAB PO SCH (20:48)
[2017-01-29] MEDS: ATORVASTATIN 20 MG TAB PO SCH (20:48)
[2017-01-29] MEDS: traZODone HCL 50 MG TAB PO PRN (20:49)
[2017-01-29] MEDS: DONEPEZIL HCL 5 MG TAB PO SCH (20:49)
[2017-01-30] MEDS: RESP: ALBUTEROL CONC 2.5 MG/0.5 ML NEB NEB SCH ×4 (05:26→22:00)
[2017-01-30 06:34] VITALS: BP 109/64; PULSE 82; RESP 16; TEMP 97.6; O2SAT 95
[2017-01-30] MEDS: DIVALPROEX SODIUM E.R. 500 MG TAB PO SCH ×2 (09:09→20:30)
[2017-01-30] MEDS: LISINOPRIL 5 MG TAB PO SCH (09:09)
[2017-01-30] MEDS: QUEtiapine FUMARATE 25 MG TAB PO SCH ×2 (09:10→20:29)
[2017-01-30] MEDS: CYCLOBENZAPRINE HCL 10 MG TAB PO SCH ×2 (09:10→20:29)
--- NOTE | 2017-01-30 14:38 | HHI.PYPN ---
Subjective Remarks Pt seen and discussed with staff. He has had no behavioral problems on unit. He remains compliant with care and medications. No SI/HI Objective Alert: Yes [place]: Person Mood: Calm Affect: Other (less guarded today) Memory Intact: Comment (impaired) Hallucinations: Other (denies) Delusions: No Delusion Type: Other (none) Suicidal: Ideation (denies) Homicidal: Ideation (deny) Insight/Judgment poor Vitals/IOs Vital Signs Date Time Temp Pulse Resp B/P (MAP) Pulse Ox O2 Delivery O2 Flow Rate FiO2 01/30/17 06:34 97.6 82 16 109/64 (79) 95 Intake and Output 01/30/17 01/30/17 01/31/17 08:00 16:00 00:00 Intake Total 240 ml 487 ml Balance 240 ml 487 ml Assessment & Plan Problem List: (1) Alzheimer's dementia ICD Codes: G30.9 - Alzheimer's disease, unspecified Status: Acute (2) Dementia in other diseases classified elsewhere with behavioral disturbance ICD Codes: F02.81 - Dementia in other diseases classified elsewhere with behavioral disturbance Status: Acute Assessment & Plan Continue current tx plan. Estimated LOS: days Justification for Cont. Inpt. risk of decompensation Request HC Surrog/Guard Advoc?: Yes Problem Qualifiers (1) Alzheimer's dementia: Mary Levy MD Jan 30, 2017 14:38
[2017-01-30] MEDS: ERGOCALCIFEROL (VIT D2) 50,000 UNIT CAP PO SCH (16:17)
[2017-01-30 18:54] VITALS: BP 122/74; PULSE 81; RESP 18; TEMP 98.2; O2SAT 98
[2017-01-30] MEDS: DONEPEZIL HCL 5 MG TAB PO SCH (20:29)
[2017-01-30] MEDS: PRAVASTATIN SOD 80 MG TAB PO SCH (20:29)
[2017-01-30] MEDS: ATORVASTATIN 20 MG TAB PO SCH (20:30)
[2017-01-31] MEDS: RESP: ALBUTEROL CONC 2.5 MG/0.5 ML NEB NEB SCH ×4 (04:00→22:00)
[2017-01-31 06:12] VITALS: BP 112/58; PULSE 79; RESP 18; TEMP 97.5
[2017-01-31] MEDS: LISINOPRIL 5 MG TAB PO SCH (08:17)
[2017-01-31] MEDS: DIVALPROEX SODIUM E.R. 500 MG TAB PO SCH ×2 (08:17→20:54)
[2017-01-31] MEDS: QUEtiapine FUMARATE 25 MG TAB PO SCH ×2 (08:17→20:54)
[2017-01-31] MEDS: CYCLOBENZAPRINE HCL 10 MG TAB PO SCH ×2 (08:17→20:53)
--- NOTE | 2017-01-31 14:53 | HHI.PYPN ---
Subjective Remarks Patient seen for follow-up, chart review. Patient was found napping and they reportedly will wake up and engage in interview today. Patient stated he states feeling "good" stating that this past weekend went well. He denies any issues sleeping eating and drinking okay tolerate medications well without any adverse drug reactions. Patient continues to be slightly paranoid with engaging in conversation with others due to recent events that brought to the hospital. Patient was advised that he will likely be transferred to his living facility which she states she was he felt okay about. Review of Systems Except as stated in HPI: all other systems reviewed are Neg Objective Alert: Yes [place]: Person Mood: Calm Affect: [place], Other Memory Intact: Comment (impaired) Hallucinations: Other (denies) Delusions: No Delusion Type: Other (none) Suicidal: Ideation (denies) Homicidal: Ideation (deny) Insight/Judgment Poor insight, fair impulse control and judgment Vitals/IOs Vital Signs Date Time Temp Pulse Resp B/P (MAP) Pulse Ox O2 Delivery O2 Flow Rate FiO2 01/31/17 06:12 97.5 79 18 112/58 (76) 01/30/17 18:54 98 Intake and Output 01/31/17 01/31/17 02/01/17 08:00 16:00 00:00 Intake Total 240 ml 240 ml Balance 240 ml 240 ml Assessment & Plan Problem List: (1) Alzheimer's dementia ICD Codes: G30.9 - Alzheimer's disease, unspecified Status: Acute (2) Dementia in other diseases classified elsewhere with behavioral disturbance ICD Codes: F02.81 - Dementia in other diseases classified elsewhere with behavioral disturbance Status: Acute Assessment & Plan Patient at this time with no behavioral issues since admission, calm and cooperative with staff, adhere to treatment, continues to be oriented only to person due to his cognitive deficits. Patient will likely be discharged to his new living facility this week. Continue current treatment. Discharge planning in progress Justification for Cont. Inpt. At risk for further decompensation if at lower level of care. Request HC Surrog/Guard Advoc?: Yes Problem Qualifiers (1) Alzheimer's dementia: Nicholas Head MD Jan 31, 2017 14:53
[2017-01-31 18:00] VITALS: BP 124/64; PULSE 83; RESP 17; TEMP 97.9; O2SAT 97
[2017-01-31] MEDS: PRAVASTATIN SOD 80 MG TAB PO SCH (20:54)
[2017-01-31] MEDS: DONEPEZIL HCL 5 MG TAB PO SCH (20:54)
[2017-01-31] MEDS: ATORVASTATIN 20 MG TAB PO SCH (20:56)
[2017-01-31] MEDS: diphenhydrAMINE HCL 50 MG CAP PO PRN (23:33)
[2017-01-31] MEDS: ACETAMINOPHEN/HYDROcodone 325 MG/5 MG TAB PO PRN (23:33)
[2017-02-01] MEDS: RESP: ALBUTEROL CONC 2.5 MG/0.5 ML NEB NEB SCH ×3 (04:00→21:29)
[2017-02-01 05:29] VITALS: BP 133/60; PULSE 79; RESP 18; TEMP 97.5; O2SAT 98
[2017-02-01] MEDS: CYCLOBENZAPRINE HCL 10 MG TAB PO SCH ×2 (08:13→20:53)
[2017-02-01] MEDS: DIVALPROEX SODIUM E.R. 500 MG TAB PO SCH ×2 (08:13→20:53)
[2017-02-01] MEDS: QUEtiapine FUMARATE 25 MG TAB PO SCH ×2 (08:13→20:53)
[2017-02-01] MEDS: LISINOPRIL 5 MG TAB PO SCH (08:14)
--- NOTE | 2017-02-01 13:59 | HHI.PYPN ---
Subjective Remarks Patient seen for follow-up, chart reviewed. Patient found ambulating around the unit was able to interact with interview and noted to be calm and cooperative. Patient states that he is feeling fine, denies any physical complaints oriented only to person patient continues to be confused as to where he is. Patient was advised that he will likely be transferred to another facility tomorrow as he just nods. Review of Systems Except as stated in HPI: all other systems reviewed are Neg Objective Alert: Yes [place]: Person Mood: Calm Affect: [place], Other Memory Intact: Comment (impaired) Hallucinations: Other (denies) Delusions: No Delusion Type: Other (none) Suicidal: Ideation (denies) Homicidal: Ideation (deny) Insight/Judgment Poor insight, fair impulse control and judgment Vitals/IOs Vital Signs Date Time Temp Pulse Resp B/P (MAP) Pulse Ox O2 Delivery O2 Flow Rate FiO2 02/01/17 05:29 97.5 79 18 133/60 (84) 98 Assessment & Plan Problem List: (1) Alzheimer's dementia ICD Codes: G30.9 - Alzheimer's disease, unspecified Status: Acute (2) Dementia in other diseases classified elsewhere with behavioral disturbance ICD Codes: F02.81 - Dementia in other diseases classified elsewhere with behavioral disturbance Status: Acute Assessment & Plan Patient since admission has had no behavioral dyscontrol continues to adhere to treatment regimen, cooperative staff. She continues to be confused and alert and oriented only to person. Patient will likely be transferred tomorrow to his new living facility. Discharge planning in progress Justification for Cont. Inpt. At risk for further decompensation if at lower level of care. Request HC Surrog/Guard Advoc?: Yes Problem Qualifiers (1) Alzheimer's dementia: Nicholas Head MD Feb 01, 2017 13:58
[2017-02-01 19:00] VITALS: BP 130/69; PULSE 92; RESP 18; TEMP 97.3; O2SAT 97
[2017-02-01] MEDS: DONEPEZIL HCL 5 MG TAB PO SCH (20:53)
[2017-02-01] MEDS: PRAVASTATIN SOD 80 MG TAB PO SCH (20:54)
[2017-02-01] MEDS: ATORVASTATIN 20 MG TAB PO SCH (20:54)
[2017-02-01] MEDS: traZODone HCL 50 MG TAB PO PRN (21:20)
[2017-02-02] MEDS: RESP: ALBUTEROL CONC 2.5 MG/0.5 ML NEB NEB SCH ×2 (03:28→07:24)
[2017-02-02] MEDS: CYCLOBENZAPRINE HCL 10 MG TAB PO SCH (08:18)
[2017-02-02] MEDS: DIVALPROEX SODIUM E.R. 500 MG TAB PO SCH (08:18)
[2017-02-02] MEDS: QUEtiapine FUMARATE 25 MG TAB PO SCH (08:18)
[2017-02-02] MEDS: LISINOPRIL 5 MG TAB PO SCH (08:18)
[2017-02-02] MEDS ORDERED: QUET1TAB7 PO (11:20)
[2017-02-02] MEDS ORDERED: LISI-519 PO (11:20)
[2017-02-02] MEDS ORDERED: ATOR20TA15 PO (11:20)
[2017-02-02] MEDS ORDERED: DEPA500T3 PO (11:20)
[2017-02-02] MEDS ORDERED: CYCL1TAB29 PO (11:20)
[2017-02-02] MEDS ORDERED: PRAV80TA PO (11:20)
[2017-02-02] MEDS ORDERED: ARIC5TAB2 PO (11:20)
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
[2017-02-02 16:30] VITALS: BP 114/72; PULSE 80; RESP 18; TEMP 97.9; O2SAT 98
== END 2017-02-02 18:25 | DRG 57 ==
LOC: NEPD 13:53 → NEDA 01-06 12:04 → H250 01-06 13:05
PROVIDERS: ADMIT Student in an Organized Health Care Education/Training Program; ATTEND Student in an Organized Health Care Education/Training Program
DX: G30.9 Alzheimer's disease, unspecified (principal); F02.81 Dementia in other diseases classified elsewhere, unspecified severity, with behavioral disturbance; G40.909 Epilepsy, unspecified, not intractable, without status epilepticus; F32.9 Major depressive disorder, single episode, unspecified; E78.5 Hyperlipidemia, unspecified; F41.9 Anxiety disorder, unspecified; D17.79 Benign lipomatous neoplasm of other sites; D17.0 Benign lipomatous neoplasm of skin and subcutaneous tissue of head, face and neck; F22 Delusional disorders; Z72.0 Tobacco use
CPT/HCPCS: 80048; 80053; 80061; 80164; 80307; 81001; 82306; 82607; 83036; 84443; 85025; 93005; 94640; 94664; J3420; J7611; J7613; Q0163

== ENCOUNTER 2017-02-09 20:29 | Inpatient (IN) | payer MEDICARE, OTHER ==
[~2017-02-09] VITALS: Ht 162.6 cm; Wt 62.5 kg
[~2017-02-09 20:29] MED LIST changes: -ARIC10TA PO; +ARIC23TA PO; +ARIC5TAB2 PO; +ATOR20TA15 PO; +COLA100C PO; +CYAN1000P IM; +CYCL1TAB29 PO; +DEPA250T2 PO; +DEPA500T3 PO; +ERGO1CAP30 PO; +LISI-519 PO; +NORC5TAB PO; +PRAV80TA PO; +QUET1TAB7 PO; -SIMV40TA PO
[2017-02-09 20:55] VITALS: BP 139/77; PULSE 96; RESP 18; TEMP 98.8; O2SAT 95
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
[2017-02-09 22:03] VITALS: BP 126/74; PULSE 90; RESP 16; TEMP 98.7; O2SAT 97
[2017-02-09 23:14] LABS: AUTOMATED NEUTROPHIL # 5.9 TH/MM3 (1.8-7.7); BASOPHIL % 0.2 % (0.0-2.0); EOSINOPHIL # 0.3 TH/MM3 (0-0.4); EOSINOPHIL % 3.1 % (0.0-4.0); HEMATOCRIT 41.5 % (39.0-51.0); HEMO FLAGS DIFF FINAL; LYMPH % 20.8 % (9.0-44.0); LYMPHOCYTE # 1.9 TH/MM3 (1.0-4.8); MEAN CELL VOLUME 98.7 FL (80.0-100.0); MEAN CORPUSCULAR HEMOGLOBIN 33.5 PG (27.0-34.0); MEAN CORPUSCULAR HGB CONC 33.9 % (32.0-36.0); MONO % 13.4 % (0.0-8.0); NEUT % 62.5 % (16.0-70.0); PLATELET COUNT 223 TH/MM3 (150-450); RED BLOOD COUNT 4.21 MIL/MM3 (4.50-5.90); RED CELL DISTRIBUTION WIDTH 14.1 % (11.6-17.2); WHITE BLOOD COUNT 9.4 TH/MM3 (4.0-11.0)
[2017-02-09 23:45] LABS: ANION GAP 3 MEQ/L (5-15); BICARBONATE 31.1 MEQ/L (21.0-32.0); BLOOD UREA NITROGEN 24 MG/DL (7-18); CHLORIDE 105 MEQ/L (98-107); GLOMERULAR FILTRATION RATE 60 ML/MIN (>89); POTASSIUM 3.9 MEQ/L (3.5-5.1); SODIUM (NA) 139 MEQ/L (136-145)
[2017-02-09 23:46] LABS: ALCOHOL LESS THAN 3 MG/DL (0-5)
[2017-02-10] MEDS ORDERED: LORazepam 2 MG/ML VIAL IM ONE (00:45)
[2017-02-10] MEDS ORDERED: TRAZ50TA12 PO (07:05)
[2017-02-10] MEDS ORDERED: TRAM50TA PO (07:05)
[2017-02-10] MEDS ORDERED: CYCL1TAB29 PO (07:05)
[2017-02-10] MEDS ORDERED: HYDR50TA94 PO (07:05)
[2017-02-10] MEDS ORDERED: VITA1000 PO (07:05)
[2017-02-10] MEDS ORDERED: VITA10002 PO (07:05)
[2017-02-10 09:23] VITALS: BP 114/65; PULSE 78; RESP 14; O2SAT 93
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
[2017-02-10] MEDS: QUEtiapine FUMARATE 25 MG TAB PO SCH ×2 (10:41→21:46)
[2017-02-10] MEDS: DIVALPROEX DR 500 MG TABEC PO SCH ×2 (10:41→21:46)
[2017-02-10 18:06] VITALS: BP 115/64; PULSE 82; RESP 16; O2SAT 94
[2017-02-10 18:36] LABS: BLOOD, URINE NEG (NEG); COMMENT (UR) CULT NOT INDICATED; CULTURE IF INDICATED CULT NOT INDICATED; GLUCOSE,URINE NEG (NEG); KETONE, URINE NEG (NEG); NITRITE,URINE NEG (NEG); SQUAMOUS EPITHELIAL CELL URINE <1 /hpf (0-5); URINE COLOR YELLOW (YELLW/STRAW)
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
[2017-02-10] MEDS ORDERED: LORazepam 1 MG TAB PO ONE (21:45)
[2017-02-11] MEDS ORDERED: LORazepam 2 MG TAB PO ONE (00:45)
[2017-02-11 01:26] VITALS: BP 128/69; PULSE 99; RESP 16; O2SAT 94
[2017-02-11 05:55] VITALS: BP 123/72; PULSE 82; RESP 18; O2SAT 94
[2017-02-11] MEDS: DIVALPROEX DR 500 MG TABEC PO SCH ×2 (10:29→21:56)
[2017-02-11] MEDS: QUEtiapine FUMARATE 25 MG TAB PO SCH ×2 (10:35→21:56)
[2017-02-11 11:00] VITALS: BP 132/75; PULSE 77; RESP 16; O2SAT 100
[2017-02-11 17:28] VITALS: BP 138/81; PULSE 83; RESP 18; O2SAT 97
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
[2017-02-11 19:13] VITALS: BP 165/77; PULSE 71; RESP 16; TEMP 98.5; O2SAT 97
[2017-02-11] MEDS ORDERED: ALUMINUM/MAGNESIUM/SIMETH 30 ML CUP PO PRN (21:30)
[2017-02-11] MEDS ORDERED: MAGNESIUM HYDROXIDE SUSP 30 ML CUP PO PRN (21:30)
[2017-02-11 23:00] VITALS: BP 129/74; PULSE 89; RESP 17; TEMP 97.6; O2SAT 97
[2017-02-11] MEDS ORDERED: ACETAMINOPHEN 325 MG TAB PO PRN (23:00)
[2017-02-12 06:52] VITALS: BP 135/65; PULSE 94; RESP 16; TEMP 98; O2SAT 95
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
[2017-02-12] MEDS: QUEtiapine FUMARATE 25 MG TAB PO SCH ×2 (09:00→20:59)
[2017-02-12] MEDS ORDERED: CHOLECALCIFEROL (VIT D3) 1000 UNIT TAB PO SCH (09:00)
[2017-02-12] MEDS ORDERED: QUEtiapine FUMARATE 25 MG TAB PO SCH (09:00)
[2017-02-12] MEDS: LISINOPRIL 5 MG TAB PO SCH (09:24)
[2017-02-12] MEDS: DIVALPROEX DR 500 MG TABEC PO SCH ×2 (09:24→20:59)
[2017-02-12] MEDS: CYANOCOBALAMIN 1,000 MCG TAB PO SCH (09:24)
[2017-02-12] MEDS ORDERED: RESP: ALBUTEROL CONC 2.5 MG/0.5 ML NEB NEB SCH ×2 (10:00)
[2017-02-12 18:14] VITALS: BP 129/61; PULSE 98; RESP 18; TEMP 98; O2SAT 96
[2017-02-12] MEDS: ATORVASTATIN 20 MG TAB PO SCH (20:59)
[2017-02-12] MEDS: DONEPEZIL HCL 5 MG TAB PO SCH (20:59)
[2017-02-12] MEDS ORDERED: PRAVASTATIN SOD 80 MG TAB PO SCH (21:00)
[2017-02-13 06:38] VITALS: BP 107/57; PULSE 73; RESP 17; TEMP 96.6; O2SAT 95
[2017-02-13] MEDS: CYANOCOBALAMIN 1,000 MCG TAB PO SCH (09:48)
[2017-02-13] MEDS: QUEtiapine FUMARATE 25 MG TAB PO SCH ×2 (09:48→22:19)
[2017-02-13] MEDS: LISINOPRIL 5 MG TAB PO SCH (09:48)
[2017-02-13] MEDS: DIVALPROEX DR 500 MG TABEC PO SCH ×2 (09:49→21:00)
[2017-02-13] MEDS: LORazepam 0.5 MG TAB PO PRN (13:41)
[2017-02-13 16:11] VITALS: BP 134/71; PULSE 98; RESP 18; TEMP 97.4; O2SAT 99
[2017-02-13 16:12] VITALS: TEMP 97.8
[2017-02-13] MEDS: DONEPEZIL HCL 5 MG TAB PO SCH (22:20)
[2017-02-13] MEDS: ATORVASTATIN 20 MG TAB PO SCH (22:20)
[2017-02-13] MEDS: LORazepam 2 MG/ML VIAL IM PRN (23:05)
[2017-02-14] MEDS: LORazepam 0.5 MG TAB PO PRN ×2 (05:54→21:21)
[2017-02-14 06:00] VITALS: BP 136/70; PULSE 78; RESP 18; TEMP 98.1; O2SAT 96
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
[2017-02-14] MEDS: LISINOPRIL 5 MG TAB PO SCH (09:47)
[2017-02-14] MEDS: DIVALPROEX DR 500 MG TABEC PO SCH ×2 (09:47→21:21)
[2017-02-14] MEDS: QUEtiapine FUMARATE 100 MG TAB PO SCH ×2 (09:47→21:21)
[2017-02-14] MEDS: CYANOCOBALAMIN 1,000 MCG TAB PO SCH (09:47)
[2017-02-14 11:14] LABS: INDIRECT BILIRUBIN 0.3 MG/DL (0.0-0.8); TOTAL BILIRUBIN ADULT 0.5 MG/DL (0.2-1.0)
[2017-02-14] MEDS: ATORVASTATIN 20 MG TAB PO SCH (21:21)
[2017-02-14] MEDS: DONEPEZIL HCL 5 MG TAB PO SCH (21:21)
[2017-02-15 06:00] VITALS: BP 123/68; PULSE 75; RESP 17; TEMP 96.8; O2SAT 93
[2017-02-15] MEDS: DIVALPROEX DR 500 MG TABEC PO SCH ×2 (09:39→20:10)
[2017-02-15] MEDS: LISINOPRIL 5 MG TAB PO SCH (09:39)
[2017-02-15] MEDS: QUEtiapine FUMARATE 100 MG TAB PO SCH ×2 (09:39→20:10)
[2017-02-15] MEDS: CYANOCOBALAMIN 1,000 MCG TAB PO SCH (09:39)
--- NOTE | 2017-02-15 10:12 | HHI.PYPN ---
Subjective Remarks This is the psychiatric progress note for February 13, 2017. Patient seen and case discussed with mental health tech. Record reviewed. Patient remains disoriented and confused. He is not a behavioral problem at this time. He does however require assistance with activities of daily living. Review of Systems Except as stated in HPI: all other systems reviewed are Neg Objective Alert: Yes [place]: Person Mood: Anxious Affect: Blunted Memory Intact: Comment (suspect remains poor) Hallucinations: Other (does not appear internally preoccupied) Delusions: No Delusion Type: Other (none noted) Suicidal: Ideation (none) Homicidal: Ideation (none) Insight/Judgment Impaired Labs Test 02/14/17 10:23 Total Bilirubin 0.5 MG/DL Direct Bilirubin 0.2 MG/DL Indirect Bilirubin 0.3 MG/DL Aspartate Amino Transf (AST/SGOT) 30 U/L Alanine Aminotransferase (ALT/SGPT) 31 U/L Alkaline Phosphatase 69 U/L Ammonia 15 MCMOL/L Total Protein 7.9 GM/DL Albumin 3.5 GM/DL Vitals/IOs Vital Signs Date Time Temp Pulse Resp B/P (MAP) Pulse Ox O2 Delivery O2 Flow Rate FiO2 02/15/17 06:00 96.8 75 17 123/68 (86) 93 02/11/17 19:13 Room Air Assessment & Plan Problem List: (1) Alzheimer's dementia ICD Codes: G30.9 - Alzheimer's disease, unspecified Status: Chronic Assessment & Plan Estimated LOS: days patient to be observed and evaluated for efficacy and tolerability of medications. We'll consider medicine adjustments if patient's behavioral dyscontrol becomes problematic. Justification for Cont. Inpt. Threatening to kill other people and unable to care for self. Request HC Surrog/Guard Advoc?: Yes Problem Qualifiers (1) Alzheimer's dementia: Qualified Codes: G30.8 - Other Alzheimer's disease; F02.81 - Dementia in other diseases classified elsewhere with behavioral disturbance Chris Pimentel MD Feb 15, 2017 10:12
--- NOTE | 2017-02-15 14:30 | HHI.PYPN ---
Subjective Remarks Patient seen in day room with nurse Cherry counselor Mame, chart review, patient compliant medications. Patient continues diffusely confused speaking only in Georgian. At some dyscontrol of weekend but the present time is calm and pleasant with me. For now continue treatment Review of Systems Except as stated in HPI: all other systems reviewed are Neg Objective Alert: Yes [place]: Person Mood: Anxious Affect: Blunted Memory Intact: Comment (suspect remains poor) Hallucinations: Other (does not appear internally preoccupied) Delusions: No Delusion Type: Other (none noted) Suicidal: Ideation (none) Homicidal: Ideation (none) Insight/Judgment Poor Vitals/IOs Vital Signs Date Time Temp Pulse Resp B/P (MAP) Pulse Ox O2 Delivery O2 Flow Rate FiO2 02/15/17 06:00 96.8 75 17 123/68 (86) 93 02/11/17 19:13 Room Air Assessment & Plan Problem List: (1) Alzheimer's dementia ICD Codes: G30.9 - Alzheimer's disease, unspecified Status: Chronic Assessment & Plan Estimated LOS: days patient continues demented confused with occasional behavioral issues. However at this time he is calm and pleasant. Justification for Cont. Inpt. At this time patient will decompensate if placed in a lower level of care Discharge Planning To be determined Request HC Surrog/Guard Advoc?: Yes Problem Qualifiers (1) Alzheimer's dementia: Qualified Codes: G30.8 - Other Alzheimer's disease; F02.81 - Dementia in other diseases classified elsewhere with behavioral disturbance Pratik Bocanegra MD Feb 15, 2017 14:30
[2017-02-15] MEDS: ATORVASTATIN 20 MG TAB PO SCH (20:10)
[2017-02-15] MEDS: DONEPEZIL HCL 5 MG TAB PO SCH (20:10)
[2017-02-16] MEDS: LORazepam 0.5 MG TAB PO PRN ×2 (00:06→17:30)
[2017-02-16 06:16] VITALS: BP 124/59; PULSE 75; RESP 18; TEMP 97.8; O2SAT 96
[2017-02-16] MEDS: DIVALPROEX DR 500 MG TABEC PO SCH ×2 (10:04→19:52)
[2017-02-16] MEDS: QUEtiapine FUMARATE 100 MG TAB PO SCH ×2 (10:04→19:52)
[2017-02-16] MEDS: CYANOCOBALAMIN 1,000 MCG TAB PO SCH (10:04)
[2017-02-16] MEDS: LISINOPRIL 5 MG TAB PO SCH (10:05)
--- NOTE | 2017-02-16 14:44 | HHI.PYPN ---
Subjective Remarks Patient seen in day room with floor staff, patient continues confused speaking only Hungarian. Needing redirection, compliant medications. For now continue treatment Review of Systems Except as stated in HPI: all other systems reviewed are Neg Objective Alert: Yes [place]: Person Mood: Anxious Affect: Blunted Memory Intact: Comment (suspect remains poor) Hallucinations: Other (does not appear internally preoccupied) Delusions: No Delusion Type: Other (none noted) Suicidal: Ideation (none) Homicidal: Ideation (none) Insight/Judgment Very poor Vitals/IOs Vital Signs Date Time Temp Pulse Resp B/P (MAP) Pulse Ox O2 Delivery O2 Flow Rate FiO2 02/16/17 06:16 97.8 75 18 124/59 (80) 96 Intake and Output 02/16/17 02/16/17 02/17/17 08:00 16:00 00:00 Intake Total 0 ml Balance 0 ml Assessment & Plan Problem List: (1) Alzheimer's dementia ICD Codes: G30.9 - Alzheimer's disease, unspecified Status: Chronic Assessment & Plan Estimated LOS: days patient continues demented and confused though no significant behavioral problems, continues speaking Hungarian. For now continue treatment Justification for Cont. Inpt. At this time patient will decompensate the placed in a lower level of care Discharge Planning To be determined Request HC Surrog/Guard Advoc?: Yes Problem Qualifiers (1) Alzheimer's dementia: Qualified Codes: G30.8 - Other Alzheimer's disease; F02.81 - Dementia in other diseases classified elsewhere with behavioral disturbance Pratik Bocanegra MD Feb 16, 2017 14:44
[2017-02-16] MEDS: LORazepam 2 MG/ML VIAL IM PRN ×2 (17:30→22:15)
[2017-02-16] MEDS ORDERED: diphenhydrAMINE HCL 50 MG/ML VIAL ONE (19:09)
[2017-02-16] MEDS ORDERED: HALOPERIDOL LACTATE 5 MG/ML AMP ONE (19:09)
[2017-02-16] MEDS: DONEPEZIL HCL 5 MG TAB PO SCH (19:52)
[2017-02-16] MEDS: ATORVASTATIN 20 MG TAB PO SCH (19:52)
[2017-02-17 06:45] VITALS: BP 136/70; PULSE 88; RESP 17; TEMP 97.2; O2SAT 99
[2017-02-17] MEDS: CYANOCOBALAMIN 1,000 MCG TAB PO SCH (08:27)
[2017-02-17] MEDS: LISINOPRIL 5 MG TAB PO SCH (08:27)
[2017-02-17] MEDS: DIVALPROEX DR 500 MG TABEC PO SCH ×2 (08:28→21:17)
[2017-02-17] MEDS: QUEtiapine FUMARATE 100 MG TAB PO SCH (08:28)
--- NOTE | 2017-02-17 10:35 | HHI.PYPN ---
Subjective Remarks Patient was seen today for psychiatric reevaluation, patient is very disorganized, restless, anxious, as I started to asking question he became agitated and tried to hit me. He was verbally descalated in primary language, Persian. Patient was redirected and sat down in a chair. However he continued to be voicing and course in the nurses. Nurse in charge reports the patient has been very aggressive and behaviorally this regulated in the unit. Last night needed ETO's twice to help him to calm down. Review of Systems Other No somatic complaints at this moment Objective Alert: Yes [place]: Person Mood: Anxious, Oppositional Affect: Blunted Memory Intact: Comment (suspect remains poor) Hallucinations: Other (does not appear internally preoccupied) Delusions: No Delusion Type: Other (none noted) Suicidal: Ideation (none) Homicidal: Ideation (none) Insight/Judgment Poor Vitals/IOs Vital Signs Date Time Temp Pulse Resp B/P (MAP) Pulse Ox O2 Delivery O2 Flow Rate FiO2 02/17/17 06:45 97.2 88 17 136/70 (92) 99 Intake and Output 02/17/17 02/17/17 02/18/17 08:00 16:00 00:00 Intake Total 0 ml 140 ml Balance 0 ml 140 ml Assessment & Plan Problem List: (1) Alzheimer's dementia ICD Codes: G30.9 - Alzheimer's disease, unspecified Status: Chronic Assessment & Plan: Patient continue to be frequently agitated, disorganized and aggressive in the unit. Difficult to redirect verbally, needed ETOs twice yesterday. Will increase Seroquel 100 mg ama nd 200 mg pm for behavior control and agitation Add Haldol 2 mg im q/8 PRN acute agitation and aggressive behavior Labs reviewed, Depakote 48, subtherapeutic, might consider increasing if necessary Oder EKG, for QTC baseline Case widely discussed with SW and nurse in charge (2) Dementia in other diseases classified elsewhere with behavioral disturbance ICD Codes: F02.81 - Dementia in other diseases classified elsewhere with behavioral disturbance Status: Acute Assessment & Plan Estimated LOS: days Justification for Cont. Inpt. Patient is acutely psychotic, aggressive and agitated. Needs hospitalization for stabilization. Request HC Surrog/Guard Advoc?: Yes Problem Qualifiers (1) Alzheimer's dementia: Qualified Codes: G30.8 - Other Alzheimer's disease; F02.81 - Dementia in other diseases classified elsewhere with behavioral disturbance Calixto Palm MD Feb 17, 2017 10:35
[2017-02-17] MEDS: HALOPERIDOL LACTATE 5 MG/ML AMP IM PRN (13:43)
[2017-02-17 18:01] VITALS: BP 121/70; PULSE 108; RESP 17; TEMP 97.8; O2SAT 99
[2017-02-17] MEDS: DONEPEZIL HCL 5 MG TAB PO SCH (21:00)
[2017-02-17] MEDS: ATORVASTATIN 20 MG TAB PO SCH (21:18)
[2017-02-17] MEDS: QUEtiapine FUMARATE 200 MG TAB PO SCH (21:19)
[2017-02-18 05:33] VITALS: BP 111/71; PULSE 86; RESP 17; TEMP 97
[2017-02-18] MEDS: QUEtiapine FUMARATE 100 MG TAB PO SCH (09:00)
[2017-02-18] MEDS: DIVALPROEX DR 500 MG TABEC PO SCH ×2 (09:00→23:20)
[2017-02-18] MEDS: CYANOCOBALAMIN 1,000 MCG TAB PO SCH (09:00)
[2017-02-18] MEDS: LISINOPRIL 5 MG TAB PO SCH (09:00)
--- NOTE | 2017-02-18 13:23 | EKG ---
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
--- NOTE | 2017-02-18 14:44 | HHI.PYPN ---
Subjective Remarks Patient was seen today for psychiatric reevaluation, patient was found in his bed, sleeping, seems to be very sedated, unable to participate in a conversation at this moment. As per nurse in charge patient continues to be very agitated, difficult to handle and aggressive in the unit. Review of Systems Other No somatic complaints Objective Alert: Yes [place]: Person Mood: Anxious, Oppositional Affect: Blunted Memory Intact: Comment (suspect remains poor) Hallucinations: Other (does not appear internally preoccupied) Delusions: No Delusion Type: Other (none noted) Suicidal: Ideation (none) Homicidal: Ideation (none) Insight/Judgment Poor Vitals/IOs Vital Signs Date Time Temp Pulse Resp B/P (MAP) Pulse Ox O2 Delivery O2 Flow Rate FiO2 02/18/17 05:33 97.0 86 17 111/71 (84) 02/17/17 18:01 99 Assessment & Plan Problem List: (1) Alzheimer's dementia ICD Codes: G30.9 - Alzheimer's disease, unspecified Status: Chronic (2) Dementia in other diseases classified elsewhere with behavioral disturbance ICD Codes: F02.81 - Dementia in other diseases classified elsewhere with behavioral disturbance Status: Acute Assessment & Plan: Continue current psychotropic regimen. Assessment & Plan Estimated LOS: days Justification for Cont. Inpt. Patient has an elevated risk to decompensate at a lower level of care.. Request HC Surrog/Guard Advoc?: Yes Problem Qualifiers (1) Alzheimer's dementia: Qualified Codes: G30.8 - Other Alzheimer's disease; F02.81 - Dementia in other diseases classified elsewhere with behavioral disturbance Calixto Palm MD Feb 18, 2017 14:44
[2017-02-18 16:55] VITALS: BP 121/68; PULSE 101; RESP 17; TEMP 98.6; O2SAT 91
[2017-02-18] MEDS: DONEPEZIL HCL 5 MG TAB PO SCH (21:00)
[2017-02-18] MEDS: ATORVASTATIN 20 MG TAB PO SCH (23:20)
[2017-02-18] MEDS: QUEtiapine FUMARATE 200 MG TAB PO SCH (23:21)
[2017-02-19 06:16] VITALS: BP 134/74; PULSE 90; RESP 16; TEMP 97.4; O2SAT 95
[2017-02-19] MEDS: CYANOCOBALAMIN 1,000 MCG TAB PO SCH (09:00)
[2017-02-19] MEDS: DIVALPROEX DR 500 MG TABEC PO SCH ×2 (09:00→21:04)
[2017-02-19] MEDS: LISINOPRIL 5 MG TAB PO SCH (09:00)
[2017-02-19] MEDS: QUEtiapine FUMARATE 100 MG TAB PO SCH (09:00)
--- NOTE | 2017-02-19 15:14 | HHI.PYPN ---
Subjective Remarks Patient was seen and case discussed with nursing. Interview conducted in Belarusian. Patient is confused and disorganized. Today, he is alert and oriented 1. Says he notices that he is more forgetful. Sleeping well per nursing. Eating well on the unit, no outbursts. Compliant with medications Objective Alert: Yes [place]: Person Mood: Anxious Affect: Restricted Memory Intact: Comment (suspect remains poor) Hallucinations: Other (does not appear internally preoccupied) Delusions: No Delusion Type: Other (none noted) Suicidal: Ideation (none) Homicidal: Ideation (none) Insight/Judgment Poor Vitals/IOs Vital Signs Date Time Temp Pulse Resp B/P (MAP) Pulse Ox O2 Delivery O2 Flow Rate FiO2 02/19/17 06:16 97.4 90 16 134/74 (94) 95 Intake and Output 02/19/17 02/19/17 02/20/17 08:00 16:00 00:00 Intake Total 0 ml 240 ml Balance 0 ml 240 ml Assessment & Plan Problem List: (1) Alzheimer's dementia ICD Codes: G30.9 - Alzheimer's disease, unspecified Status: Chronic (2) Dementia in other diseases classified elsewhere with behavioral disturbance ICD Codes: F02.81 - Dementia in other diseases classified elsewhere with behavioral disturbance Status: Acute Assessment & Plan Continue current treatment plan Justification for Cont. Inpt. Patient would decompensate in a less restrictive setting Request HC Surrog/Guard Advoc?: Yes Problem Qualifiers (1) Alzheimer's dementia: Qualified Codes: G30.8 - Other Alzheimer's disease; F02.81 - Dementia in other diseases classified elsewhere with behavioral disturbance David Allison DO Feb 19, 2017 15:14
[2017-02-19 18:19] VITALS: BP 119/69; PULSE 104; RESP 18; TEMP 98.5; O2SAT 97
[2017-02-19] MEDS: DONEPEZIL HCL 5 MG TAB PO SCH (20:19)
[2017-02-19] MEDS: ATORVASTATIN 20 MG TAB PO SCH (21:04)
[2017-02-19] MEDS: QUEtiapine FUMARATE 200 MG TAB PO SCH (21:04)
[2017-02-19] MEDS: LORazepam 2 MG/ML VIAL IM PRN (23:39)
[2017-02-19] MEDS: HALOPERIDOL LACTATE 5 MG/ML AMP IM PRN (23:39)
[2017-02-20 05:31] VITALS: BP 123/68; PULSE 89; RESP 18; TEMP 98.1; O2SAT 95
[2017-02-20] MEDS: LISINOPRIL 5 MG TAB PO SCH (08:51)
[2017-02-20] MEDS: DIVALPROEX DR 500 MG TABEC PO SCH ×2 (08:51→21:27)
[2017-02-20] MEDS: QUEtiapine FUMARATE 100 MG TAB PO SCH (08:51)
[2017-02-20] MEDS: CYANOCOBALAMIN 1,000 MCG TAB PO SCH (08:51)
--- NOTE | 2017-02-20 14:57 | HHI.PYPN ---
Subjective Remarks Patient was seen and case discussed with nursing. Patient is more internally stimulated today. Less interactive during the interview. Hyperverbal, responding to internal stimuli, talking to himself throughout the day. No outbursts, compliant with medications Objective Alert: Yes [place]: Person Mood: Anxious Affect: Blunted Memory Intact: Comment (suspect remains poor) Hallucinations: Other (internally stimulated) Delusions: No Delusion Type: Other (none noted) Suicidal: Ideation (none) Homicidal: Ideation (none) Insight/Judgment Poor Vitals/IOs Vital Signs Date Time Temp Pulse Resp B/P (MAP) Pulse Ox O2 Delivery O2 Flow Rate FiO2 02/20/17 05:31 98.1 89 18 123/68 (86) 95 Intake and Output 02/20/17 02/20/17 02/21/17 08:00 16:00 00:00 Intake Total 0 ml Balance 0 ml Assessment & Plan Problem List: (1) Alzheimer's dementia ICD Codes: G30.9 - Alzheimer's disease, unspecified Status: Chronic (2) Dementia in other diseases classified elsewhere with behavioral disturbance ICD Codes: F02.81 - Dementia in other diseases classified elsewhere with behavioral disturbance Status: Acute Assessment & Plan Continue current treatment plan Justification for Cont. Inpt. Patient will decompensate in a less restrictive setting Request HC Surrog/Guard Advoc?: Yes Problem Qualifiers (1) Alzheimer's dementia: Qualified Codes: G30.8 - Other Alzheimer's disease; F02.81 - Dementia in other diseases classified elsewhere with behavioral disturbance David Allison DO Feb 20, 2017 14:57
[2017-02-20] MEDS: DONEPEZIL HCL 5 MG TAB PO SCH (21:00)
[2017-02-20] MEDS: QUEtiapine FUMARATE 200 MG TAB PO SCH (21:27)
[2017-02-20] MEDS: ATORVASTATIN 20 MG TAB PO SCH (21:28)
[2017-02-21 05:21] VITALS: BP 116/57; PULSE 90; RESP 18; TEMP 98.2; O2SAT 98
[2017-02-21] MEDS: CYANOCOBALAMIN 1,000 MCG TAB PO SCH (08:46)
[2017-02-21] MEDS: LISINOPRIL 5 MG TAB PO SCH (08:46)
[2017-02-21] MEDS: QUEtiapine FUMARATE 100 MG TAB PO SCH (08:46)
[2017-02-21] MEDS: DIVALPROEX DR 500 MG TABEC PO SCH ×2 (08:46→21:15)
--- NOTE | 2017-02-21 14:05 | HHI.PYPN ---
Subjective Remarks Patient was seen and case discussed with nursing. Patient is alert and oriented 1. He is largely nonsensical in German. Is not following the interview questions and appears internally stimulated. Compliant with medications and tolerating it well Objective Alert: Yes [place]: Person Mood: Anxious Affect: Restricted Memory Intact: Comment (suspect remains poor) Hallucinations: Other (internally stimulated) Delusions: No Delusion Type: Other (none noted) Suicidal: Ideation (none) Homicidal: Ideation (none) Insight/Judgment Poor Vitals/IOs Vital Signs Date Time Temp Pulse Resp B/P (MAP) Pulse Ox O2 Delivery O2 Flow Rate FiO2 02/21/17 05:21 98.2 90 18 116/57 (76) 98 Intake and Output 02/21/17 02/21/17 02/22/17 08:00 16:00 00:00 Intake Total 150 ml 120 ml Balance 150 ml 120 ml Assessment & Plan Problem List: (1) Alzheimer's dementia ICD Codes: G30.9 - Alzheimer's disease, unspecified Status: Chronic (2) Dementia in other diseases classified elsewhere with behavioral disturbance ICD Codes: F02.81 - Dementia in other diseases classified elsewhere with behavioral disturbance Status: Acute Assessment & Plan Continue current treatment plan Justification for Cont. Inpt. Patient would decompensate in a less restrictive setting Request HC Surrog/Guard Advoc?: Yes Problem Qualifiers (1) Alzheimer's dementia: Qualified Codes: G30.8 - Other Alzheimer's disease; F02.81 - Dementia in other diseases classified elsewhere with behavioral disturbance David Allison DO Feb 21, 2017 14:05
[2017-02-21 18:19] VITALS: BP 122/68; PULSE 88; RESP 18; TEMP 98.2; O2SAT 97
[2017-02-21] MEDS: QUEtiapine FUMARATE 200 MG TAB PO SCH (21:15)
[2017-02-21] MEDS: DONEPEZIL HCL 5 MG TAB PO SCH (21:16)
[2017-02-21] MEDS: ATORVASTATIN 20 MG TAB PO SCH (21:16)
[2017-02-22 05:56] VITALS: BP 119/58; PULSE 98; RESP 15; TEMP 97.8; O2SAT 95
[2017-02-22] MEDS: LISINOPRIL 5 MG TAB PO SCH (09:08)
[2017-02-22] MEDS: QUEtiapine FUMARATE 100 MG TAB PO SCH (09:08)
[2017-02-22] MEDS: CYANOCOBALAMIN 1,000 MCG TAB PO SCH (09:08)
[2017-02-22] MEDS: DIVALPROEX DR 500 MG TABEC PO SCH ×2 (09:08→21:14)
--- NOTE | 2017-02-22 14:59 | HHI.PYPN ---
Subjective Remarks Patient is seen today, for psychiatric reevaluation along with medical student Doreen. She is found in the recreational area of the unit. Quietly having his breakfast. He is interviewed in primary language Latvian. He reports good mood, he says that his been doing okay, denies depressive symptoms, patient is disoriented in time and place. No agitation or aggressive behavior reported in the last shift. She is compliant with his medication, no significant side effects other than a little bit of sedation. Review of Systems Other No somatic complaints Objective Alert: Yes [place]: Person Mood: Anxious Affect: Restricted Memory Intact: Comment (suspect remains poor) Hallucinations: Other (internally stimulated) Delusions: No Delusion Type: Other (none noted) Suicidal: Ideation (none) Homicidal: Ideation (none) Insight/Judgment Poor Vitals/IOs Vital Signs Date Time Temp Pulse Resp B/P (MAP) Pulse Ox O2 Delivery O2 Flow Rate FiO2 02/22/17 05:56 97.8 98 15 119/58 (78) 95 Intake and Output 02/22/17 02/22/17 02/23/17 08:00 16:00 00:00 Intake Total 0 ml 120 ml Balance 0 ml 120 ml Assessment & Plan Problem List: (1) Alzheimer's dementia ICD Codes: G30.9 - Alzheimer's disease, unspecified Status: Chronic (2) Dementia in other diseases classified elsewhere with behavioral disturbance ICD Codes: F02.81 - Dementia in other diseases classified elsewhere with behavioral disturbance Status: Acute Assessment & Plan Estimated LOS: days Justification for Cont. Inpt. Patient has an elevated risk to decompensate out of a structure environment. Request HC Surrog/Guard Advoc?: Yes Problem Qualifiers (1) Alzheimer's dementia: Qualified Codes: G30.8 - Other Alzheimer's disease; F02.81 - Dementia in other diseases classified elsewhere with behavioral disturbance Calixto Palm MD Feb 22, 2017 14:59
[2017-02-22 18:45] VITALS: BP 122/59; PULSE 96; RESP 18; TEMP 97.4; O2SAT 98
[2017-02-22] MEDS: ATORVASTATIN 20 MG TAB PO SCH (21:14)
[2017-02-22] MEDS: DONEPEZIL HCL 5 MG TAB PO SCH (21:14)
[2017-02-22] MEDS: QUEtiapine FUMARATE 200 MG TAB PO SCH (21:14)
[2017-02-23 05:58] VITALS: BP 111/63; PULSE 97; RESP 18; TEMP 97.9; O2SAT 94
[2017-02-23] MEDS: DIVALPROEX DR 500 MG TABEC PO SCH ×2 (09:29→19:42)
[2017-02-23] MEDS: CYANOCOBALAMIN 1,000 MCG TAB PO SCH (09:29)
[2017-02-23] MEDS: QUEtiapine FUMARATE 100 MG TAB PO SCH (09:29)
[2017-02-23] MEDS: LISINOPRIL 5 MG TAB PO SCH (09:29)
[2017-02-23] MEDS: LORazepam 0.5 MG TAB PO PRN ×2 (12:51→19:42)
--- NOTE | 2017-02-23 13:48 | HHI.PYPN ---
Subjective Remarks Patient was seen today for psychiatric reevaluation, he was in recreational area of the unit, he was calm, not agitated, but would not answer questions, would be disorganized and tangential. He was seen this morning in [place] [address] were he did not provide significant information or cooperated. No episodes of agitation or aggressive behavior reported in the last 24 hours. Patient is complaining of his medications no significant side effects. Patient has been scratching the back of his head very often when he has a psoriatic lesion. Review of Systems Other Psoriatic lesion in the back of his head Objective Alert: Yes [place]: Person Mood: Anxious Affect: Restricted Memory Intact: Comment (suspect remains poor) Hallucinations: Other (internally stimulated) Delusions: No Delusion Type: Other (none noted) Suicidal: Ideation (none) Homicidal: Ideation (none) Insight/Judgment Poor Vitals/IOs Vital Signs Date Time Temp Pulse Resp B/P (MAP) Pulse Ox O2 Delivery O2 Flow Rate FiO2 02/23/17 05:58 97.9 97 18 111/63 (79) 94 Intake and Output 02/23/17 02/23/17 02/24/17 08:00 16:00 00:00 Intake Total 240 ml Balance 240 ml Assessment & Plan Problem List: (1) Alzheimer's dementia ICD Codes: G30.9 - Alzheimer's disease, unspecified Status: Chronic Assessment & Plan: Consult hospitalist for psoriatic lesion in the occipital area. No changes in psychotropics. (2) Dementia in other diseases classified elsewhere with behavioral disturbance ICD Codes: F02.81 - Dementia in other diseases classified elsewhere with behavioral disturbance Status: Acute Assessment & Plan Estimated LOS: days Justification for Cont. Inpt. Patient has an increased risk to decompensate out the psychiatric unit. Request HC Surrog/Guard Advoc?: Yes Problem Qualifiers (1) Alzheimer's dementia: Qualified Codes: G30.8 - Other Alzheimer's disease; F02.81 - Dementia in other diseases classified elsewhere with behavioral disturbance Calixto Palm MD Feb 23, 2017 13:48
[2017-02-23 16:45] VITALS: BP 110/68; PULSE 102; RESP 18; TEMP 96
--- NOTE | 2017-02-23 19:10 | PD.CONS ---
HPI Service [facility] Hospitalists Consult Requested By Psychiatry. Reason for Consult occipital psoriasis Primary Care Physician Unknown Diagnoses: (1) Psoriasis of scalp (2) Alzheimer's dementia (3) Dementia with behavioral disturbance History of Present Illness Mr. Alvarado is a 76 year old male who was admitted to the psychiatry service under [place] due to threats to kill himself and others at a intermediate. Hospitalist service was consulted for possible psoriasis of the scalp. Patient was seen in the psychiatry elizalde today. He was somewhat sleepy and could not participate in this interview much. He appears to be comfortable. Review of Systems ROS Limitations: Clinical Condition, Altered Mental Status, Language Barrier Except as stated in HPI: all other systems reviewed are Neg Past Family Social History Allergies: Coded Allergies: No Known Allergies (Verified , 01/05/17) Past Medical History COPD Alzheimer's dementia Back pain Past Surgical History No significant surgical history reported. Reported Medications Current Medications Medications (Trade) Dose Ordered Sig/Nisha Route Start Time Stop Time Status Last Admin (Depakote Dr) 500 mg BID PO 02/10/17 10:30 02/23/17 19:42 (Ativan) 0.5 mg Q6H PRN PO 02/11/17 21:15 02/23/17 19:42 (Ativan Inj) 0.5 mg Q6H PRN IM 02/11/17 21:15 02/19/17 23:39 (Milk Of Magnesia Liq) 30 ml DAILY PRN PO 02/11/17 21:30 (Mag-Al Plus Susp Liq) 30 ml Q6H PRN PO 02/11/17 21:30 (Tylenol) 650 mg Q4H PRN PO 02/11/17 23:00 02/23/17 12:50 (Lipitor) 20 mg HS PO 02/12/17 21:00 02/23/17 19:42 (Vitamin B12) 1,000 mcg DAILY PO 02/12/17 09:00 02/23/17 09:29 (Aricept) 10 mg HS PO 02/12/17 21:00 02/23/17 19:43 (Prinivil) 5 mg DAILY PO 02/12/17 09:00 02/23/17 09:29 (SEROquel) 100 mg DAILY PO 02/18/17 09:00 02/23/17 09:29 (SEROquel) 200 mg HS PO 02/17/17 21:00 02/23/17 19:42 (Haldol Inj) 2 mg Q4H PRN IM 02/17/17 10:30 02/19/17 23:39 Family History Unable to obtain. Social History Per ED documentations, patient denied using alcohol or illicit drugs. However, he smokes. Physical Exam Vital Signs Vital Signs Date Time Temp Pulse Resp B/P (MAP) Pulse Ox O2 Delivery O2 Flow Rate FiO2 02/23/17 16:45 96.0 102 18 110/68 (82) 02/23/17 05:58 97.9 97 18 111/63 (79) 94 Physical Exam GENERAL: This is a well-nourished, well-developed patient, in no apparent distress. Somewhat drowsy. SKIN: No rashes, ecchymoses or lesions. Warm and dry. HEAD: Atraumatic. Normocephalic. There is a large area of scaly lesions with surrounding erythema over the occipital area. EYES: Pupils equal round and reactive. No injection or drainage. ENT: Nose without bleeding, purulent drainage or septal hematoma. Airway patent. NECK: Trachea midline. No lymphadenopathy. Supple, nontender, no meningeal signs. CARDIOVASCULAR: Regular rate and rhythm without murmurs, gallops, or rubs. No JVD. RESPIRATORY: Clear to auscultation. Breath sounds equal bilaterally. No wheezes , rales, or rhonchi. GASTROINTESTINAL: Abdomen soft, non-tender, nondistended. No guarding. MUSCULOSKELETAL: Extremities without clubbing, cyanosis, or edema. NEUROLOGICAL: Somewhat drowsy. No focal deficits appreciated. Assessment and Plan Problem List: (1) Dementia with behavioral disturbance ICD Code: F03.91 - Unspecified dementia with behavioral disturbance Status: Acute (2) Alzheimer's dementia ICD Code: G30.9 - Alzheimer's disease, unspecified Status: Chronic (3) Psoriasis of scalp ICD Code: L40.9 - Psoriasis, unspecified Assessment and Plan Mr. Alvarado is a 76 year old male with a history of Alzheimer's dementia who was admitted under [place] act due to suicidal and homicidal threats at a intermediate. Hospitalist service was consulted for lesion on patient's occipital area. - Dementia with behavioral disturbance - Alzheimer's dementia - Continue Donepezil - Continue Depakote, Seroquel and Haldol PRN - Psoriasis of scalp - Will start patient on Betamethasone 0.05% cream Q12hrs (9AM, 9PM) - Also, start Vitamin D ( available with Vitamin A in the formulary) once a day at around 1300. Full code. Ambulation Thank you for the consult. We will continue to follow this patient with you. Problem Qualifiers (1) Alzheimer's dementia: Qualified Codes: G30.8 - Other Alzheimer's disease; F02.81 - Dementia in other diseases classified elsewhere with behavioral disturbance (2) Dementia with behavioral disturbance: Qualified Codes: F03.91 - Unspecified dementia with behavioral disturbance Jr Estevez DO Feb 23, 2017 19:10
[2017-02-23] MEDS: ATORVASTATIN 20 MG TAB PO SCH (19:42)
[2017-02-23] MEDS: QUEtiapine FUMARATE 200 MG TAB PO SCH (19:42)
[2017-02-23] MEDS: DONEPEZIL HCL 5 MG TAB PO SCH (19:43)
[2017-02-24 06:13] VITALS: BP 114/57; PULSE 77; RESP 17; TEMP 97.5; O2SAT 99
[2017-02-24] MEDS: BETAMETHASONE DIPROPIONATE 0.05% CREAM 15 GM TOPICAL SCH ×2 (09:00→21:00)
[2017-02-24] MEDS: QUEtiapine FUMARATE 100 MG TAB PO SCH (09:00)
[2017-02-24] MEDS: DIVALPROEX DR 500 MG TABEC PO SCH (09:00)
[2017-02-24] MEDS: LISINOPRIL 5 MG TAB PO SCH (09:00)
[2017-02-24] MEDS: CYANOCOBALAMIN 1,000 MCG TAB PO SCH (09:00)
[2017-02-24] MEDS: HALOPERIDOL LACTATE 5 MG/ML AMP IM PRN ×2 (10:10→15:32)
[2017-02-24] MEDS: VITAMINS A & D OINT 60 GM TUBE TOPICAL SCH (13:00)
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
[2017-02-24] MEDS ORDERED: CIPROFLOXACIN 0.3% EACH EYE SCH (16:00)
[2017-02-24] MEDS ORDERED: CIPROFLOXACIN 0.3% OPTH SOLN 2.5 ML BTL EACH EYE SCH (16:00)
[2017-02-24] MEDS: CIPROFLOXACIN 0.3% OPTH SOLN 2.5 ML BTL RIGHT EYE SCH (20:00)
[2017-02-24] MEDS: DONEPEZIL HCL 5 MG TAB PO SCH (21:00)
[2017-02-24] MEDS: QUEtiapine FUMARATE 200 MG TAB PO SCH (21:00)
[2017-02-24] MEDS: ATORVASTATIN 20 MG TAB PO SCH (21:00)
[2017-02-24] MEDS: VALPROIC ACID SYRUP 250 MG/5 ML UDC PO SCH (21:00)
[2017-02-25] MEDS: CIPROFLOXACIN 0.3% OPTH SOLN 2.5 ML BTL RIGHT EYE SCH ×6 (04:00→22:38)
[2017-02-25 06:23] VITALS: BP 127/61; PULSE 92; RESP 17; TEMP 98.5
[2017-02-25] MEDS: LISINOPRIL 5 MG TAB PO SCH (11:17)
[2017-02-25] MEDS: CYANOCOBALAMIN 1,000 MCG TAB PO SCH (11:17)
[2017-02-25] MEDS: VALPROIC ACID SYRUP 250 MG/5 ML UDC PO SCH ×2 (11:17→22:38)
[2017-02-25] MEDS: QUEtiapine FUMARATE 100 MG TAB PO SCH (11:18)
[2017-02-25] MEDS: VITAMINS A & D OINT 60 GM TUBE TOPICAL SCH (11:18)
[2017-02-25] MEDS: BETAMETHASONE DIPROPIONATE 0.05% CREAM 15 GM TOPICAL SCH ×2 (11:18→22:38)
[2017-02-25 13:45] VITALS: BP 144/61
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
[2017-02-25] MEDS: ATORVASTATIN 20 MG TAB PO SCH (22:37)
[2017-02-25] MEDS: LORazepam 0.5 MG TAB PO PRN (22:37)
[2017-02-25] MEDS: QUEtiapine FUMARATE 200 MG TAB PO SCH (22:38)
[2017-02-25] MEDS: DONEPEZIL HCL 5 MG TAB PO SCH (22:38)
[2017-02-26] MEDS: CIPROFLOXACIN 0.3% OPTH SOLN 2.5 ML BTL RIGHT EYE SCH ×6 (01:50→20:41)
[2017-02-26] MEDS: LORazepam 2 MG/ML VIAL IM PRN (03:39)
[2017-02-26 06:11] VITALS: BP 179/76; PULSE 112; RESP 18
[2017-02-26] MEDS: QUEtiapine FUMARATE 100 MG TAB PO SCH (10:57)
[2017-02-26] MEDS: CYANOCOBALAMIN 1,000 MCG TAB PO SCH (10:57)
[2017-02-26] MEDS: LORazepam 0.5 MG TAB PO PRN ×5 (10:57→20:42)
[2017-02-26] MEDS: LISINOPRIL 5 MG TAB PO SCH (10:57)
[2017-02-26] MEDS: VALPROIC ACID SYRUP 250 MG/5 ML UDC PO SCH ×2 (10:58→20:42)
[2017-02-26] MEDS: BETAMETHASONE DIPROPIONATE 0.05% CREAM 15 GM TOPICAL SCH ×2 (10:59→21:00)
[2017-02-26] MEDS: VITAMINS A & D OINT 60 GM TUBE TOPICAL SCH (10:59)
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
[2017-02-26 18:00] VITALS: BP 102/59; PULSE 100; RESP 18; TEMP 98.3
[2017-02-26] MEDS: DONEPEZIL HCL 5 MG TAB PO SCH (20:41)
[2017-02-26] MEDS: QUEtiapine FUMARATE 200 MG TAB PO SCH (20:41)
[2017-02-26] MEDS: ATORVASTATIN 20 MG TAB PO SCH (20:42)
[2017-02-27] MEDS: CIPROFLOXACIN 0.3% OPTH SOLN 2.5 ML BTL RIGHT EYE SCH ×7 (04:29→21:07)
[2017-02-27] MEDS: LORazepam 2 MG/ML VIAL IM PRN (04:29)
[2017-02-27] MEDS: HALOPERIDOL LACTATE 5 MG/ML AMP IM PRN (04:30)
--- NOTE | 2017-02-27 10:21 | HHI.PYPN ---
Subjective Remarks Pt seen and discussed with staff. He was restless and agitated yesterday evening , but has been calm this morning. Compliant with care today. Compliant with medications. No SI/HI Objective Alert: Yes [place]: Person Mood: Calm Affect: Restricted Memory Intact: Comment (impaired) Hallucinations: Other (none) Delusions: No Delusion Type: Other (none noted) Suicidal: Ideation (none) Homicidal: Ideation (none) Insight/Judgment poor Labs Test 02/27/17 09:25 Vitals/IOs Vital Signs Date Time Temp Pulse Resp B/P (MAP) Pulse Ox O2 Delivery O2 Flow Rate FiO2 02/26/17 18:00 98.3 100 18 102/59 (73) 02/24/17 06:13 99 Intake and Output 02/27/17 02/27/17 02/28/17 08:00 16:00 00:00 Intake Total 0 ml Balance 0 ml Assessment & Plan Problem List: (1) Alzheimer's dementia ICD Codes: G30.9 - Alzheimer's disease, unspecified Status: Chronic (2) Dementia in other diseases classified elsewhere with behavioral disturbance ICD Codes: F02.81 - Dementia in other diseases classified elsewhere with behavioral disturbance Status: Acute Assessment & Plan Continue current tx plan Estimated LOS: days Justification for Cont. Inpt. risk of decompensation Request HC Surrog/Guard Advoc?: Yes Problem Qualifiers (1) Alzheimer's dementia: Qualified Codes: G30.8 - Other Alzheimer's disease; F02.81 - Dementia in other diseases classified elsewhere with behavioral disturbance Mary Levy MD Feb 27, 2017 10:21
[2017-02-27 10:54] LABS: FREE T4 0.83 NG/DL (0.76-1.46)
[2017-02-27] MEDS: QUEtiapine FUMARATE 100 MG TAB PO SCH (11:25)
[2017-02-27] MEDS: LISINOPRIL 5 MG TAB PO SCH (11:25)
[2017-02-27] MEDS: CYANOCOBALAMIN 1,000 MCG TAB PO SCH (11:27)
[2017-02-27] MEDS: BETAMETHASONE DIPROPIONATE 0.05% CREAM 15 GM TOPICAL SCH ×2 (11:28→21:07)
[2017-02-27] MEDS: VALPROIC ACID SYRUP 250 MG/5 ML UDC PO SCH ×3 (11:28→21:06)
[2017-02-27] MEDS: VITAMINS A & D OINT 60 GM TUBE TOPICAL SCH (11:28)
[2017-02-27] MEDS: DONEPEZIL HCL 5 MG TAB PO SCH ×2 (21:00→21:06)
[2017-02-27] MEDS: ATORVASTATIN 20 MG TAB PO SCH ×2 (21:00→21:06)
[2017-02-27] MEDS: QUEtiapine FUMARATE 200 MG TAB PO SCH ×2 (21:00→21:06)
[2017-02-28] MEDS: HALOPERIDOL LACTATE 5 MG/ML AMP IM PRN (00:38)
[2017-02-28] MEDS: LORazepam 2 MG/ML VIAL IM PRN (00:39)
[2017-02-28] MEDS: CIPROFLOXACIN 0.3% OPTH SOLN 2.5 ML BTL RIGHT EYE SCH ×6 (04:00→20:17)
[2017-02-28 06:44] VITALS: BP 109/58; PULSE 90; RESP 18; TEMP 96.9; O2SAT 96
[2017-02-28] MEDS: VALPROIC ACID SYRUP 250 MG/5 ML UDC PO SCH ×2 (08:45→21:31)
[2017-02-28] MEDS: QUEtiapine FUMARATE 100 MG TAB PO SCH (08:45)
[2017-02-28] MEDS: LORazepam 0.5 MG TAB PO PRN (08:45)
[2017-02-28] MEDS: CYANOCOBALAMIN 1,000 MCG TAB PO SCH (08:45)
[2017-02-28] MEDS: BETAMETHASONE DIPROPIONATE 0.05% CREAM 15 GM TOPICAL SCH ×2 (08:46→21:30)
[2017-02-28] MEDS: VITAMINS A & D OINT 60 GM TUBE TOPICAL SCH (08:46)
[2017-02-28] MEDS: LISINOPRIL 5 MG TAB PO SCH (08:51)
--- NOTE | 2017-02-28 10:03 | HHI.PYPN ---
Subjective Remarks Patient was seen today for psychiatric reevaluation, patient was found in his chair in the recreational area of the unit, patient seems to be sedated and is sleepy, poorly cooperative with the evaluation, the nurse in charge is states that the patient in the last week has been showing episodic sedation during the day, most probably related with the medications. I have reviewed the documentation of the weekend doctor, patient did not have in the report of aggressive behavior or agitation. He has been compliant with medications, no side effects other than apparently sedation. Review of Systems Other No somatic complaints Objective Alert: Yes [place]: Person Mood: Calm Affect: Restricted Memory Intact: Comment (impaired) Hallucinations: Other (none) Delusions: No Delusion Type: Other (none noted) Suicidal: Ideation (none) Homicidal: Ideation (none) Insight/Judgment Poor Vitals/IOs Vital Signs Date Time Temp Pulse Resp B/P (MAP) Pulse Ox O2 Delivery O2 Flow Rate FiO2 02/28/17 06:44 96.9 90 18 109/58 (75) 96 Intake and Output 02/28/17 02/28/17 03/01/17 08:00 16:00 00:00 Intake Total 0 ml Balance 0 ml Assessment & Plan Problem List: (1) Alzheimer's dementia ICD Codes: G30.9 - Alzheimer's disease, unspecified Status: Chronic Assessment & Plan: Will order Depakote levels. Might consider decreasing psychotropics. (2) Dementia in other diseases classified elsewhere with behavioral disturbance ICD Codes: F02.81 - Dementia in other diseases classified elsewhere with behavioral disturbance Status: Acute Assessment & Plan: . Assessment & Plan Estimated LOS: days Justification for Cont. Inpt. Patient has an elevated risk to decompensate at a lower level of care. Request HC Surrog/Guard Advoc?: Yes Problem Qualifiers (1) Alzheimer's dementia: Qualified Codes: G30.8 - Other Alzheimer's disease; F02.81 - Dementia in other diseases classified elsewhere with behavioral disturbance Calixto Palm MD Feb 28, 2017 10:03
[2017-02-28 17:09] VITALS: BP 128/57; PULSE 84; RESP 17; TEMP 97.2; O2SAT 98
[2017-02-28] MEDS: QUEtiapine FUMARATE 200 MG TAB PO SCH (21:00)
[2017-02-28] MEDS: ATORVASTATIN 20 MG TAB PO SCH (21:00)
[2017-02-28] MEDS: DONEPEZIL HCL 5 MG TAB PO SCH (21:00)
[2017-03-01] MEDS: CIPROFLOXACIN 0.3% OPTH SOLN 2.5 ML BTL RIGHT EYE SCH ×5 (00:29→16:00)
[2017-03-01 06:00] VITALS: BP 97/59; PULSE 104; RESP 19; TEMP 98.1; O2SAT 95
[2017-03-01] MEDS: QUEtiapine FUMARATE 100 MG TAB PO SCH (09:00)
[2017-03-01] MEDS: CYANOCOBALAMIN 1,000 MCG TAB PO SCH (09:00)
[2017-03-01] MEDS: VITAMINS A & D OINT 60 GM TUBE TOPICAL SCH (09:00)
[2017-03-01] MEDS: VALPROIC ACID SYRUP 250 MG/5 ML UDC PO SCH (09:00)
[2017-03-01] MEDS: BETAMETHASONE DIPROPIONATE 0.05% CREAM 15 GM TOPICAL SCH (09:00)
[2017-03-01] MEDS: LISINOPRIL 5 MG TAB PO SCH (09:00)
[2017-03-01 15:30] VITALS: BP 114/56; PULSE 58
--- NOTE | 2017-03-01 15:40 | HHI.PYPN ---
Subjective Remarks Patient was seen for psychiatric reevaluation today, patient seems to be very sedated, unable to participate in a conversation due to the level of sedation. As per nurses patient has been agitated, verbally abusive, but compliant with medications. Review of Systems Other no somatic complains Objective Alert: Yes [place]: Person Mood: Calm Affect: Restricted Memory Intact: Comment (impaired) Hallucinations: Other (none) Delusions: No Delusion Type: Other (none noted) Suicidal: Ideation (none) Homicidal: Ideation (none) Insight/Judgment poor Vitals/IOs Vital Signs Date Time Temp Pulse Resp B/P (MAP) Pulse Ox O2 Delivery O2 Flow Rate FiO2 03/01/17 06:00 98.1 104 19 97/59 (72) 95 Intake and Output 03/01/17 03/01/17 03/02/17 08:00 16:00 00:00 Intake Total 0 ml 0 ml Balance 0 ml 0 ml Assessment & Plan Problem List: (1) Alzheimer's dementia ICD Codes: G30.9 - Alzheimer's disease, unspecified Status: Chronic (2) Dementia in other diseases classified elsewhere with behavioral disturbance ICD Codes: F02.81 - Dementia in other diseases classified elsewhere with behavioral disturbance Status: Acute Assessment & Plan: Hold psychotropics due to sedation, order CBC, CMP and transferred to the med psych and consult medicine. Assessment & Plan Estimated LOS: days Justification for Cont. Inpt. Patient has an increased chance to decompensate at a lower level of care. Request HC Surrog/Guard Advoc?: Yes Problem Qualifiers (1) Alzheimer's dementia: Qualified Codes: G30.8 - Other Alzheimer's disease; F02.81 - Dementia in other diseases classified elsewhere with behavioral disturbance Calixto Palm MD Mar 01, 2017 15:40
[2017-03-01] MEDS ORDERED: DEXT 5%-NACL 0.9% 1000 ML INJ 1,000 ML IV SCH (16:30)
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
[2017-03-01] MEDS ORDERED: EPINEPHrine HCL (1:10,000) 1 MG/10 ML SYRINGE IV ONE (16:51)
--- NOTE | 2017-03-01 18:08 | HHI.PR ---
Addendum to Inpatient Note Addendum Reason: Additional Documentation Additional Information CODE BLUE called on patient through pager system. By the time I arrived at the patient's room in the psych elizalde, Dr. Christie was there running the code. Patient was transferred from psych unit to ICU, where Dr. Arrington took over running the code. I stayed at bedside until ROSC was achieved. Dustin Valles MD R2 Mar 01, 2017 18:08
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
== END 2017-03-01 16:52 | disposition still patient (30) | DRG 56 ==
LOC: NEDAMB 20:29 → NEDA 02-11 17:16 → H250 02-11 20:27
PROVIDERS: ADMIT Psychiatry & Neurology Psychiatry; ATTEND Psychiatry & Neurology Psychiatry
DX: G30.9 Alzheimer's disease, unspecified (principal); I46.9 Cardiac arrest, cause unspecified; F02.81 Dementia in other diseases classified elsewhere, unspecified severity, with behavioral disturbance; R45.851 Suicidal ideations; J44.9 Chronic obstructive pulmonary disease, unspecified; Z95.810 Presence of automatic (implantable) cardiac defibrillator; L40.9 Psoriasis, unspecified; F41.9 Anxiety disorder, unspecified
CPT/HCPCS: 80048; 80076; 80164; 80307; 81001; 82140; 84439; 84443; 85025; 93005; 96372; J0171; J1200; J1630; J2060

== ENCOUNTER 2017-03-01 17:14 | Inpatient (IN) | payer MEDICARE, OTHER ==
[2017-03-01 16:41] VITALS: O2SAT 70
[~2017-03-01 17:14] MED LIST changes: +HYDR50TA94 PO; +TRAM50TA PO; +TRAZ50TA12 PO; +VITA1000 PO; +VITA10002 PO
[2017-03-01 17:20] VITALS: O2SAT 92
--- NOTE | 2017-03-01 17:25 | PD.PROCEDR ---
Procedure Note Procedure Indication: Intubation during cardiopulmonary arrest INTUBATION: The patient was put in optimal position for the procedure. Rapid sequence intubation was initiated by me using no medication, patient was unresponsive. DL with Mac 4 blade Grade 1 view, single attempt. The patient was intubated with a 7.5 cuffed endotracheal tube. Tube placement was confirmed by visualization of the tube and balloon passing through the cords, capnometry and subsequent chest x-ray. Breath sounds were equal and well aerated bilaterally postintubation. No breath sounds over stomach. CPR continued, CXR ordered Derek Christie MD Mar 01, 2017 17:25
--- NOTE | 2017-03-01 17:28 | PD.PROCEDR ---
Central Line Procedure REASON FOR PROCEDURE Central venous access PROCEDURE PERFORMED Central line placement: Right femoral central line CONSENT Emergency procedure ANESTHESIA Local injection of 1% Lidocaine DESCRIPTION OF THE PROCEDURE Procedure performed during cardiopulmonary arrest. Unable to use full sterile precautions. Cap, face mask, and sterile gloves, used, right femoral region sterilized with chlorhexidine 2. On second attempt, the introducer needle was inserted with negative pressure in syringe and venous flash was obtained. The guide wire was then advanced without any restriction and the needle was removed. The dilator was used without any complications. Using Seldinger technique the 20 cm triple lumen catheter was advanced over the guide wire to a depth of 18 centimeters. The guide wire was removed. All ports were aspirated with dark venous blood return and flushed easily with sterile saline. All ports were capped. Antibiotic disc was placed around central line at puncture site. The central line was secured to the skin with two interrupted 2.0 silk sutures. The area was bandaged with sterile see-through central line bandage. ESTIMATED BLOOD LOSS: Less than 1 cc. Derek Christie MD Mar 01, 2017 17:28
--- NOTE | 2017-03-01 17:39 | HHI.HP ---
HPI Service Critical Care Medicine Primary Care Physician Unknown Admission Diagnosis Diagnosis: Chief Complaint: Cardiac arrest Travel History International Travel<30 Days: No Contact w/Intl Traveler <30 Da: No Traveled to Known Affected Are: No History of Present Illness Mr. Alvarado is a 76 year old male who was admitted to the psychiatry service under arteaga act due to threats to kill himself and others at a long-term. Hospitalist service was consulted for possible psoriasis of the scalp. Patient was seen in the psychiatry elizalde today. He was somewhat sleepy and could not participate in this interview much. He appears to be comfortable. Male with a medical history significant for dementia, COPD who was admitted to the psychiatric service and was being followed by the hospitalist as well. Patient was noted to be more lethargic today and eventually became unresponsive and was found to be in asystole. CODE BLUE cardiac arrest code was activated and the psychiatry elizalde and patient was seen initially by Dr. Christie who intubated the patient and subsequently ACLS protocol was continued and patient was transferred to [facility] [place] where I met the code team on arrival. CPR/ACLS protocol was continued. Dr. Christie placed femoral central line for vascular access. Patient received 30 minutes of CPR/ACLS following which he had return of spontaneous circulation to sinus rhythm. He remained unresponsive following ROSC. He was continued on Levophed following resuscitation for hypotension at 20 mics per minute. Stat labs and chest x-ray as well as a head CT were ordered. Review of Systems ROS Limitations: Unable to be obtained as patient is unresponsive following CPR Past Family Social History Allergies: Coded Allergies: No Known Allergies (Verified , 01/05/17) Past Medical History COPD Alzheimer's dementia Back pain Past Surgical History No significant surgical history reported. Reported Medications Current Medications Medications (Trade) Dose Ordered Sig/Nisha Route Start Time Stop Time Status Last Admin (Brandon Thomas) 500 mg BID PO 02/10/17 10:30 02/23/17 19:42 (Ativan) 0.5 mg Q6H PRN PO 02/11/17 21:15 02/23/17 19:42 (Ativan Inj) 0.5 mg Q6H PRN IM 02/11/17 21:15 02/19/17 23:39 (Milk Of Magnesia Liq) 30 ml DAILY PRN PO 02/11/17 21:30 (Mag-Al Plus Susp Liq) 30 ml Q6H PRN PO 02/11/17 21:30 (Tylenol) 650 mg Q4H PRN PO 02/11/17 23:00 02/23/17 12:50 (Lipitor) 20 mg HS PO 02/12/17 21:00 02/23/17 19:42 (Vitamin B12) 1,000 mcg DAILY PO 02/12/17 09:00 02/23/17 09:29 (Aricept) 10 mg HS PO 02/12/17 21:00 02/23/17 19:43 (Prinivil) 5 mg DAILY PO 02/12/17 09:00 02/23/17 09:29 (SEROquel) 100 mg DAILY PO 02/18/17 09:00 02/23/17 09:29 (SEROquel) 200 mg HS PO 02/17/17 21:00 02/23/17 19:42 (Haldol Inj) 2 mg Q4H PRN IM 02/17/17 10:30 02/19/17 23:39 Current medications from psychiatric unit: Reviewed on AUG, please see that document for details. Family History Unable to obtain. Social History Per ED documentations, patient denied using alcohol or illicit drugs. However, he smokes. Physical Exam Physical Exam HEENT/ Neuro: Comatose, orally intubated, pupils 3 mm bilaterally sluggish reaction to light, Pallor present, no icterus, tongue/ mucosa moist Neck: No JVD Chest/Pulm: on mech vent, good air entry bilaterally, scattered rhonchi, no wheezing or crackles CVS: S1-S2 regular, no murmur GI/abdomen: soft, nontender, bowel sounds sluggish Extremities: warm bilaterally, no edema Laboratory Pending Imaging Chest x-ray pending Caprini VTE Risk Assessment Caprini VTE Risk Assessment: Mod/High Risk (score >= 2) Caprini Risk Assessment Model Point Value = 1 Point Value = 2 Point Value = 3 Point Value = 5 Age 41-60 Minor surgery BMI > 25 kg/m2 Swollen legs Varicose veins or History of unexplained or recurrent spontaneous Oral contraceptives or hormone replacement Sepsis (< 1 month) Serious lung disease, including pneumonia (< 1 month) Abnormal pulmonary function Acute myocardial infarction Congestive heart failure (< 1 month) History of inflammatory bowel disease Medical patient at bed rest Age 61-74 Arthroscopic surgery Major open surgery (> 45 min) Laparoscopic surgery (> 45 min) Malignancy Confined to bed (> 72 hours) Immobilizing plaster cast Central venous access Age >= 75 History of VTE Family history of VTE Factor V Leiden Prothrombin [id number] Lupus anticoagulant Anticardiolipin antibodies Elevated serum homocysteine Heparin-induced thrombocytopenia Other congenital or acquired thrombophilia Stroke (< 1 month) Elective arthroplasty Hip, pelvis, or leg fracture Acute spinal cord injury (< 1 month) Prophylaxis Regimen Total Risk Factor Score Risk Level Prophylaxis Regimen 0-1 Low Early ambulation 2 Moderate Order ONE of the following: *Sequential Compression Device (SCD) *Heparin 5000 units SQ BID 3-4 Higher Order ONE of the following medications: *Heparin 5000 units SQ TID *Enoxaparin/Lovenox 40 mg SQ daily (WT < 150 kg, CrCl > 30 mL/min) *Enoxaparin/Lovenox 30 mg SQ daily (WT < 150 kg, CrCl > 10-29 mL/min) *Enoxaparin/Lovenox 30 mg SQ BID (WT < 150 kg, CrCl > 30 mL/min) AND/OR *Sequential Compression Device (SCD) 5 or more Highest Order ONE of the following medications: *Heparin 5000 units SQ TID (Preferred with Epidurals) *Enoxaparin/Lovenox 40 mg SQ daily (WT < 150 kg, CrCl > 30 mL/min) *Enoxaparin/Lovenox 30 mg SQ daily (WT < 150 kg, CrCl > 10-29 mL/min) *Enoxaparin/Lovenox 30 mg SQ BID (WT < 150 kg, CrCl > 30 mL/min) AND *Sequential Compression Device (SCD) Assessment and Plan Assessment and Plan 76-year-old male: Cardiac arrest status post CPR Encephalopathy Acute respiratory failure on mechanical ventilation Shock Dementia COPD Hypertension Plan: Neuro: Observe off sedation. Follow neuro status. 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 Head CT without contrast ordered and is pending at this time. Cardiovascular: Levophed for pressor support, continue fluid resuscitation. Hold all antihypertensives. Check serial cardiac enzymes. 12-lead EKG. Pulmonary: Continue mechanical ventilation, vent bundle, bronchodilators. Obtain ABG following A line insertion. GI/liver: Keep nothing by mouth. NG tube will be placed to low intermittent wall suction. Renal/: IV hydration, strict intake output, monitor and replete elect lites, follow BUN/creatinine. ID: Follow CBC. Will decide regarding antibiotics and cultures following review of labs Heme: Follow CBC and coags. Endocrine: Fingerstick glucose 75 following CPR. Patient given 1 amp of D50. Will continue Accu-Cheks and if hyperglycemic will consider sliding-scale insulin. Prophylaxis: PPI/SCDs. Await head CT before deciding regarding subcutaneous Lovenox. Condition critical. Prognosis appears poor. Psychiatric floor attempting to contact family, no response per psychiatry RN. Time spent on critical care excluding procedures 40 minutes. Junior Arrington MD Mar 01, 2017 17:39
[2017-03-01 17:45] LABS: BLOOD GAS BASE EXCESS -14.8 mmol/L (-2-2); BLOOD GAS CARBOXYHEMOGLOBIN 0.3 % (0-4); BLOOD GAS HCO3 12 mmol/L (22-26); BLOOD GAS METHEMOGLOBIN 1.4 % (0-2); BLOOD GAS O2 HGB SATURATION 98 % (90-100); BLOOD GAS OXYGEN CONTENT 17.3 Vol % (12.0-20.0); BLOOD GAS PCO2 36 mmHg (38-42); BLOOD GAS PO2 518 mmHg (61-120); BLOOD GAS TOTAL HGB 11.6 G/DL (12.0-16.0); TEMP CORR TO 98.6
[2017-03-01] MEDS ORDERED: RESP: ALBUTEROL 2.5 MG/IPRATROPIUM 0.5 MG NEB (PRN) INH (17:45)
[2017-03-01] MEDS ORDERED: MISCELLANEOUS NURSING INFORMATION XX SCH (17:45)
[2017-03-01] MEDS ORDERED: ACETAMINOPHEN 325 MG TAB PO PRN (17:45)
[2017-03-01] MEDS ORDERED: CHLORHEXIDINE GLUCONATE 2 % 1 PACK (2 CLOTHS) TOP PRN (17:45)
[2017-03-01] MEDS ORDERED: EPINEPHrine (1:1000) INJ 2 MG in DEXTROSE 5% IN WATER INJ 250 ML IV PRN ×2 (17:45)
[2017-03-01] MEDS ORDERED: SODIUM CHLORIDE 0.9% FLUSH 10 ML FLUSH IV FLUSH PRN (17:45)
[2017-03-01 17:46] LABS: CRITICAL VALUE YES; DRAW SITE ART LINE; FIO2 100 %; OXYGEN DEVICE VENTILATOR; VENT SETTINGS AC/24/550/PEEP5
[2017-03-01 17:47] LABS: STAT YES; ULNAR PULSE PRESENT
--- NOTE | 2017-03-01 17:53 | RADRPT ---
EXAM DATE/TIME: 03/01/2017 17:30 [facility] COMPARISON: No previous studies available for comparison. INDICATIONS : Post intubation. MEDICAL HISTORY : Unobtainable. SURGICAL HISTORY : Unobtainable. ENCOUNTER: Initial ACUITY: 1 day PAIN SCORE: Non-responsive. LOCATION: Bilateral chest FINDINGS: Endotracheal tube tip is noted terminating 3 cm above the broderick. NG tube tip at the esophagogastric junction. The lungs are clear. EKG leads are present. Osseous structures are intact. CONCLUSION: ET tube and NG tube placement as above. Dorian Guallpa MD on March 01, 2017 at 17:51 Board Certified Radiologist. This report was verified electronically.
[2017-03-01] MEDS ORDERED: SODIUM CHLOR 0.9% 1000 ML INJ 1,000 ML IV SCH (18:00)
[2017-03-01 18:07] LABS: INTERNATIONAL NORMALIZED RATIO 1.6 RATIO; PROTHROMBIN TIME - PATIENT 18.6 SEC (9.8-11.6)
[2017-03-01 18:21] LABS: BASOPHIL % 0.1 % (0.0-2.0); EOSINOPHIL % 0.1 % (0.0-4.0); HEMATOCRIT 33.8 % (39.0-51.0); LYMPH % 13.1 % (9.0-44.0); MEAN CELL VOLUME 114.9 FL (80.0-100.0); MEAN CORPUSCULAR HEMOGLOBIN 34.1 PG (27.0-34.0); MONO % 6.7 % (0.0-8.0); PLATELET COUNT 150 TH/MM3 (150-450); RED BLOOD COUNT 2.94 MIL/MM3 (4.50-5.90); RED CELL DISTRIBUTION WIDTH 16.4 % (11.6-17.2)
[2017-03-01 18:35] LABS: MEAN CORPUSCULAR HGB CONC 29.6 % (32.0-36.0)
[2017-03-01 18:39] LABS: HEMO FLAGS AUTO DIFF
[2017-03-01] MEDS ORDERED: CALCIUM CHLORIDE 10% SOLN 1 GRAM/10 ML SYR IV ONE (18:46)
[2017-03-01] MEDS ORDERED: EPINEPHrine HCL (1:10,000) 1 MG/10 ML SYRINGE IV ONE (18:46)
[2017-03-01] MEDS ORDERED: SODIUM BICARBONATE 8.4% INJ 50 MEQ/50 ML SYR IV ONE (18:46)
[2017-03-01] MEDS ORDERED: NOREPINEPHRINE 4 MG/4 ML AMP IV ONE (18:46)
[2017-03-01] MEDS ORDERED: EPINEPHrine HCL (1:1000) 30 MG/30 ML VIAL IV ONE (18:46)
[2017-03-01] MEDS ORDERED: DEXTROSE 50% IN WATER 50 ML SYRINGE IV ONE (18:46)
[2017-03-01] MEDS ORDERED: EPINEPHrine 2 MG/D5W 250 ML IV PRN ×2 (19:00)
--- NOTE | 2017-03-01 19:14 | PD.PROCEDR ---
Procedure Note Procedure Procedure: CPR Preoperative diagnosis: Cardiac arrest Postoperative diagnosis: Same CODE BLUE cardiac arrest code activated in psychiatric unit. Patient was intubated emergently by Dr. Christie and ACLS protocol initiated and patient was transferred to [facility] [place]. CPR/ACLS protocol continued by me following arrival to the ICU. CPR/ACLS continued for about 30 minutes following which patient had return of spontaneous circulation. Please see ACLS code sheet for details. Junior Arrington MD Mar 01, 2017 19:14
--- NOTE | 2017-03-01 19:17 | DEATH SUM ---
Summary Demographics Date Pronounced : Mar 01, 2017 Time Of : 18:47 Pronounced By: Galilea Arrington Preliminary Cause of : Cardiac arrest Junior Arrington MD Mar 01, 2017 19:17
--- NOTE | 2017-03-01 19:20 | HHI.DS ---
Summary Note Date of : Mar 01, 2017 Time Of : 18:47 Admission Date Mar 01, 2017 at 17:14 Admitting Diagnosis cardiac arrest Diagnosis at Time of : Brief History Mr. Alvarado is a 76 year old male who was admitted to the psychiatry service under arteaga act due to threats to kill himself and others at a skilled nursing. Hospitalist service was consulted for possible psoriasis of the scalp. Patient was seen in the psychiatry elizalde today. He was somewhat sleepy and could not participate in this interview much. He appears to be comfortable. Male with a medical history significant for dementia, COPD who was admitted to the psychiatric service and was being followed by the hospitalist as well. Patient was noted to be more lethargic today and eventually became unresponsive and was found to be in asystole. CODE BLUE cardiac arrest code was activated and the psychiatry elizalde and patient was seen initially by Dr. Christie who intubated the patient and subsequently ACLS protocol was continued and patient was transferred to [facility] [place] where I met the code team on arrival. CPR/ACLS protocol was continued. Dr. Christie placed femoral central line for vascular access. Patient received 30 minutes of CPR/ACLS following which he had return of spontaneous circulation to sinus rhythm. He remained unresponsive following ROSC. He was continued on Levophed following resuscitation for hypotension at 20 mics per minute. Stat labs and chest x-ray as well as a head CT were ordered. Review of Systems ROS Limitations: Unable to be obtained as patient is unresponsive following CPR Past Family Social History Allergies: Coded Allergies: No Known Allergies (Verified , 01/05/17) Past Medical History COPD Alzheimer's dementia Back pain Past Surgical History No significant surgical history reported. Reported Medications CBC/BMP: 03/01/17 6105 Significant Findings Laboratory Tests Test 03/01/17 17:15 03/01/17 17:30 White Blood Count 15.0 TH/MM3 (4.0-11.0) Red Blood Count 2.94 MIL/MM3 (4.50-5.90) Hemoglobin 10.0 GM/DL (13.0-17.0) Hematocrit 33.8 % (39.0-51.0) Mean Corpuscular Volume 114.9 FL (80.0-100.0) Mean Corpuscular Hemoglobin 34.1 PG (27.0-34.0) Mean Corpuscular Hemoglobin Concent 29.6 % (32.0-36.0) Neutrophils (%) (Auto) 80.0 % (16.0-70.0) Neutrophils # (Auto) 12.0 TH/MM3 (1.8-7.7) Monocytes # (Auto) 1.0 TH/MM3 (0-0.9) Prothrombin Time 18.6 SEC (9.8-11.6) Activated Partial Thromboplast Time 37.0 SEC (24.3-30.1) Lactic Acid Level 12.8 mmol/L (0.4-2.0) Blood Gas HCO3 12 mmol/L (22-26) Blood Gas Base Excess -14.8 mmol/L (-2-2) Arterial Blood pH 7.16 (7.380-7.420) Arterial Blood Partial Pressure CO2 36 mmHg (38-42) Arterial Blood Partial Pressure O2 518 mmHg (61-120) Blood Gas Hemoglobin 11.6 G/DL (12.0-16.0) Imaging Chest x-ray : ETT above broderick, lung hart clear Hospital Course Patient went into cardiac arrest and psychiatric unit. He was transferred following intubation and ACLS protocol to [facility] [place] where CPR/ACLS was continued. Patient had return of spontaneous circulation about 30 minutes after initiating ACLS protocol. Patient was placed on mechanical ventilation and Levophed and epinephrine drips for hypotension. Stat labs and chest x-ray were ordered. Head CT was pending however patient became more unstable hemodynamically with worsening hypotension and eventually went into cardiac arrest with asystole. Patient's family had already decided to make him a DNR status following my conversation with them. Patient remained in asystole and unresponsive to painful stimuli and was pronounced at 1847 hrs. on 03/01/2017 and was disconnected from mechanical ventilation. Junior Arrington MD Mar 01, 2017 19:20
[2017-03-01] MEDS ORDERED: CHLORHEXIDINE 0.12% (ORAL KIT) 15 ML CUP MT SCH (20:00)
[2017-03-01] MEDS ORDERED: SODIUM CHLORIDE 0.9% FLUSH 10 ML FLUSH IV FLUSH SCH (21:00)
[2017-03-01] MEDS ORDERED: RESP: ALBUTEROL 2.5 MG/IPRATROPIUM 0.5 MG NEB (SCH) NEB (22:00)
[2017-03-01 22:03] LABS: BANDS 12 % (0-6); METAMYELOCYTES 1 % (0-1); MYELOCYTES 1 % (0-0); NEUTROPHIL # MANUAL DIFF 12.3 TH/MM3 (1.8-7.7); PLATELET ESTIMATE SMEAR NORMAL (NORMAL); PLATELET MORPHOLOGY NORMAL (NORMAL); POLYS (SEG NEUTROPHILS) 68 % (16-70); WBC DIFF SAMPLE 100
[2017-03-01 22:05] LABS: SCAN/DIFF FINAL DIFF MANUAL
[2017-03-02] MEDS ORDERED: CHLORHEXIDINE GLUCONATE 2 % 1 PACK (2 CLOTHS) TOP SCH (04:00)
[2017-03-02] MEDS ORDERED: PANTOPRAZOLE SODIUM 40 MG VIAL IV PUSH SCH (09:00)
== END 2017-03-01 18:47 | disposition expired | DRG 296 ==
LOC: HIMW 17:14
PROVIDERS: ADMIT Hospitalist; ATTEND Hospitalist
PROC: 0BH17EZ Insertion of Endotracheal Airway into Trachea, Via Natural or Artificial Opening (ICD-10-PCS; principal; 2017-03-01)
PROC: 5A1935Z Respiratory Ventilation, Less than 24 Consecutive Hours (ICD-10-PCS; 2017-03-01)
PROC: 06HM33Z Insertion of Infusion Device into Right Femoral Vein, Percutaneous Approach (ICD-10-PCS; 2017-03-01)
PROC: 5A12012 Performance of Cardiac Output, Single, Manual (ICD-10-PCS; 2017-03-01)
DX: I46.9 Cardiac arrest, cause unspecified (principal); G93.40 Encephalopathy, unspecified; J96.00 Acute respiratory failure, unspecified whether with hypoxia or hypercapnia; R57.9 Shock, unspecified; J44.9 Chronic obstructive pulmonary disease, unspecified; L40.9 Psoriasis, unspecified; F17.210 Nicotine dependence, cigarettes, uncomplicated; I10 Essential (primary) hypertension; Z66 Do not resuscitate
CPT/HCPCS: 31500; 36556; 36620; 71010; 82805; 83605; 85007; 85027; 85610; 85730; 92950; 94002; J0171